=== PATIENT | male | born 1995 | race Caucasian/White ===

== ENCOUNTER 2017-04-17 16:46 | Inpatient (IN) | payer OTHER ==
[2017-04-17 17:32] LABS: Hematocrit 44 % (42-52); Hemoglobin 15.1 g/dl (14.0-18.0); Mean Corpuscular HGB Conc 34 g/dl (31-36); Mean Corpuscular Hemoglobin 31 pg (27-31); Mean Corpuscular Volume 91 fL (80-94); Mean Platelet Volume 8 um3 (7.4-10.4); Red Blood Count 4.89 10^6/ul (4.0-5.4); Red Cell Distribution Width 14 % (10.5-15); White Blood Count 11.4 10^3/ul (3.5-10.8)
[2017-04-17 17:34] LABS: Urine Bilirubin Negative (Negative); Urine Glucose Negative (Negative); Urine Nitrite Negative (Negative)
--- NOTE | 2017-04-17 17:39 | RAD ---
Indication: Headaches, fall. CT of the brain was performed without IV contrast. Ventricular structures are midline. No midline shift is noted. The extra-axial spaces are unremarkable. There is no evidence of intracranial mass or hemorrhage. There are no other high or low density lesions identified. Mastoid air cells and paranasal sinuses are otherwise unremarkable. IMPRESSION: THERE IS NO EVIDENCE OF INTRACRANIAL MASS OR HEMORRHAGE NOTED.
[2017-04-17 17:51] LABS: ALT 39 U/L (7-52); AST 24 U/L (13-39); Albumin 4.7 g/dL (3.2-5.2); Alkaline Phosphatase 78 U/L (34-104); Anion Gap 8 mmol/L (2-11); BUN/Creatinine Ratio 18.3 (8-20); Blood Urea Nitrogen 17 mg/dL (6-24); CO2 Carbon Dioxide 27 mmol/L (22-32); Calcium 9.1 mg/dL (8.6-10.3); Chloride 102 mmol/L (101-111); EGFR African American 129.5 (>60); EGFR Non-African American 100.7 (>60); Globulin 2.5 g/dL (2-4); Glucose 96 mg/dL (70-100); Potassium 4.1 mmol/L (3.5-5.0); Sodium 137 mmol/L (133-145); Total Protein 7.2 g/dL (6.4-8.9)
[2017-04-17 18:06] LABS: Benzodiazepine Urine Screen None Detected (None Detect)
[2017-04-17 18:15] LABS: TSH (Thyroid Stimulating Horm) 1.13 mcIU/mL (0.34-5.60)
[2017-04-17 18:50] LABS: Acetaminophen < 15 mcg/mL; Alcohol < 10 mg/dL (<10); Salicylate < 2.50 mg/dL (<30)
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
[2017-04-17] MEDS ORDERED: OLANzapine TAB* 10 MG ONE (22:36)
[2017-04-17] MEDS ORDERED: Acetaminophen TAB* 325 MG PO PRN (22:39)
[2017-04-17] MEDS ORDERED: Al Hydrox/Mg Hydrox/Simet LIQ* 30 ML UDC PO PRN (22:39)
[2017-04-17] MEDS ORDERED: OLANzapine TAB* 10 MG PO SCH (23:00)
[2017-04-18] MEDS: FLUoxetine CAP* 20 MG PO SCH (08:57)
[2017-04-18] MEDS: Vitamin THERAPEUTIC TAB PO SCH (08:57)
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
[2017-04-18] MEDS ORDERED: Divalproex ER TAB(*) 500 MG PO SCH (21:00)
[2017-04-18] MEDS: OLANzapine TAB* 10 MG PO SCH (21:03)
[2017-04-18] MEDS: Divalproex ER TAB(*) 250 MG PO SCH (21:03)
[2017-04-19] MEDS: Vitamin THERAPEUTIC TAB PO SCH (09:18)
[2017-04-19] MEDS: ARIPiprazole TAB* 5 MG PO SCH (09:18)
[2017-04-19] MEDS: FLUoxetine CAP* 20 MG PO SCH (09:18)
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
[2017-04-19] MEDS: Divalproex ER TAB(*) 250 MG PO SCH (20:25)
[2017-04-19] MEDS: OLANzapine TAB* 10 MG PO SCH (20:26)
--- NOTE | 2017-04-20 05:15 | EEG ---
ELECTROENCEPHALOGRAPHY: DATE OF STUDY: 04/19/17 REFERRING PROVIDER: Behavioral services unit. LOCATION: He is an inpatient in the behavioral service unit. CLINICAL PROBLEM: The patient with bipolar disorder, bizarre thoughts, agitation. MEDICATIONS: Include: 1. Aripiprazole. 2. . 3. Olanzapine. 4. Fluoxetine. REPORT: The 16-channel EEG is remarkable for background rhythms consisting of a well-formed alpha r hythm in the posterior derivations at 10 cycles per second, which is symmetrical and suppressed by e ye opening. Moderate voltage bifrontal beta rhythms are also noted and are symmetric. The patient is awake. Activation procedures are not performed. There is occasional blink and muscle artifact. The patient does not appear drowsy or asleep during the recording. There are no focal, lateralized , or epileptiform abnormalities. CLINICAL IMPRESSION: Normal awake EEG. [id number]/[facility] #: [id number]
[2017-04-20] MEDS: FLUoxetine CAP* 20 MG PO SCH (08:57)
[2017-04-20] MEDS: Vitamin THERAPEUTIC TAB PO SCH (08:57)
[2017-04-20] MEDS: ARIPiprazole TAB* 5 MG PO SCH (08:57)
[2017-04-20] MEDS: OLANzapine TAB* 10 MG PO SCH (20:51)
[2017-04-20] MEDS: Divalproex ER TAB(*) 250 MG PO SCH (20:52)
[2017-04-21] MEDS: FLUoxetine CAP* 20 MG PO SCH (09:03)
[2017-04-21] MEDS: Vitamin THERAPEUTIC TAB PO SCH (09:04)
[2017-04-21] MEDS: ARIPiprazole TAB* 5 MG PO SCH (09:04)
--- NOTE | 2017-04-21 18:31 | PN ---
Subjective - Subjective Subjective: Jay reports improvement in sleep (with new CPAP machine), mood, level of energy and absence of side effects from prescribed mediations. He avidly denies SI/HI or A/VH. He continues to find the inpatient unit a useful place to get his medications adjusted. Per staff, he has been adherent to [place]'s routines. Objective - Appearance Appearance: Healthy Appearing Dysmorphic Features: No Hygiene: Normal Grooming: Well Kept - Behavior Psychomotor Activities: Normal Exhibits Abnormal Movement: No - Attitude and Relatedness Attitude and Relatedness: Cooperative Eye Contact: Fair - Speech Quality: Unpressured Latencies: Normal Quantity: Appropriate - Mood Patient's Decription of Mood: "Okay" - Affect Observed Affect: Non-labile Affect Consistent with: Euthymia - Thought Process Patient's Thought Process: Coherent, Goal Directed Thought Content: No Passive Wish, No Suicidal Planning, No Homicidal Ideation, No Paranoid Ideation - Sensorium Experiencing Hallucinations: No, Sensorium is Clear - Level of Consciousness Level of Consciousness: Alert Orientation: Yes Intact - Impulse Control Impulse Control: Intact - Insight and Judgement Insight and Judgement: Fair - Group Participation Particating in Group Activities: Yes - Medication Management Medication Management Adherence: Yes Assessment - Assessment Merits Inpatient Hospitalization: Consolidate Improvements, For Discharge Planning Inpatient DSM-IV Dx: 1. Schizoaffective d/o, Bipolar type MRE mixed. 2. TBI. 3. 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 Plan - Plan Treatment Plan: Name: JAY CRABTREE Birthdate: 1995 [id number] Medications: Current Medications Acetaminophen (Tylenol Tab*) 650 mg PO Q4H PRN PRN Reason: PAIN or TEMP > 101 F Al Hydrox/Mg Hydrox/Simethicone (Maalox Plus*) 30 ml PO Q4H PRN PRN Reason: INDIGESTION Aripiprazole (Abilify Tab*) 10 mg PO DAILY [facility] Last Admin: 04/21/17 09:04 Dose: 10 mg Divalproex Sodium (Depakote Er Tab(*)) 750 mg PO BEDTIME [facility] Last Admin: 04/20/17 20:52 Dose: 750 mg Fluoxetine HCl (Prozac Cap*) 40 mg PO QAM [facility] Last Admin: 04/21/17 09:03 Dose: 40 mg Multivitamins (Theragran Tab*) 1 tab PO DAILY [facility] Last Admin: 04/21/17 09:04 Dose: 1 tab Olanzapine (Zyprexa Tab*) 15 mg PO BEDTIME [facility] Last Admin: 04/20/17 20:51 Dose: 15 mg - Discharge Plan Discharge Plan: Outpatient Follow Up Outpatient Program: [facility]
[2017-04-21] MEDS: OLANzapine TAB* 10 MG PO SCH (20:23)
[2017-04-21] MEDS: Divalproex ER TAB(*) 250 MG PO SCH (20:25)
[2017-04-22] MEDS: FLUoxetine CAP* 20 MG PO SCH (09:25)
[2017-04-22] MEDS: ARIPiprazole TAB* 5 MG PO SCH (09:26)
[2017-04-22] MEDS: Vitamin THERAPEUTIC TAB PO SCH (09:27)
--- NOTE | 2017-04-22 15:35 | PN ---
Subjective - Subjective Service Type: 47403 Hosp care 15 min low complexity Subjective: Jay says he has been doing a lot better since his admission and adjustment of his meds. Feels bad about his behavior in the community and for stabbing self on his thigh. Objective - Appearance Appearance: Healthy Appearing Dysmorphic Features: Yes Hygiene: Normal Grooming: Fairly Well Kept - Behavior Psychomotor Activities: Normal Exhibits Abnormal Movement: No - Attitude and Relatedness Attitude and Relatedness: Appropriate Eye Contact: Good - Speech Quality: Unpressured Latencies: Normal Quantity: Terse - Mood Patient's Decription of Mood: "Okay" - Affect Observed Affect: Non-labile Affect Consistent with: Euthymia - Thought Process Patient's Thought Process: Coherent, Impoverished Thought Content: No Passive Wish, No Suicidal Planning, No Homicidal Ideation, No Paranoid Ideation - Sensorium Experiencing Hallucinations: No, Sensorium is Clear Type of Hallucinations: Visual: No, Auditory: Yes, Command: No - Level of Consciousness Level of Consciousness: Alert Orientation: Yes Intact, Yes Orientated to Time, Yes Orientated to Place, Yes Orientated to Person - Impulse Control Impulse Control: Intact - Insight and Judgement Insight and Judgement: Fair - Group Participation Particating in Group Activities: Yes - Medication Management Medication Management Adherence: Yes Assessment - Assessment Merits Inpatient Hospitalization: Consolidate Improvements, Pending Safe DC Plan Inpatient DSM-IV Dx: 1. Schizoaffective d/o, Bipolar type MRE mixed. 2. TBI. 3. 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 Plan - Plan Treatment Plan: Name: JAY CRABTREE Birthdate: 1995 [id number] Continued Medication Management: Continue Outpt Medication Medications: Current Medications Acetaminophen (Tylenol Tab*) 650 mg PO Q4H PRN PRN Reason: PAIN or TEMP > 101 F Al Hydrox/Mg Hydrox/Simethicone (Maalox Plus*) 30 ml PO Q4H PRN PRN Reason: INDIGESTION Aripiprazole (Abilify Tab*) 10 mg PO DAILY [facility] Last Admin: 04/22/17 09:26 Dose: 10 mg Divalproex Sodium (Depakote Er Tab(*)) 750 mg PO BEDTIME [facility] Last Admin: 04/21/17 20:25 Dose: 750 mg Fluoxetine HCl (Prozac Cap*) 40 mg PO QAM [facility] Last Admin: 04/22/17 09:25 Dose: 40 mg Multivitamins (Theragran Tab*) 1 tab PO DAILY [facility] Last Admin: 04/22/17 09:27 Dose: 1 tab Olanzapine (Zyprexa Tab*) 15 mg PO BEDTIME [facility] Last Admin: 04/21/17 20:23 Dose: 15 mg - Discharge Plan Discharge Plan: Outpatient Follow Up Outpatient Program: [facility]
[2017-04-22] MEDS: Divalproex ER TAB(*) 250 MG PO SCH (20:43)
[2017-04-22] MEDS: OLANzapine TAB* 10 MG PO SCH (20:43)
[2017-04-23] MEDS: FLUoxetine CAP* 20 MG PO SCH (10:00)
[2017-04-23] MEDS: Vitamin THERAPEUTIC TAB PO SCH (10:00)
[2017-04-23] MEDS: ARIPiprazole TAB* 5 MG PO SCH (10:00)
--- NOTE | 2017-04-23 11:48 | PN ---
MHU: Group Therapy Note - Service Type Service Type: [id number] Group Psychotherapy - Cognitive Behavioral Group Therapy ( CBT):Patient attended CBT programming this morning and presented with flat affect that did not vary with discussion. Although responsive to direct prompts to respond to questions, patient did not engage in spontaneous conversation.
--- NOTE | 2017-04-23 15:53 | PN ---
Subjective - Subjective Service Type: [id number] Hosp care 15 min low complexity Subjective: Patient noted to still isolate in his room since admission. Patient is up for meals and patient attended some groups today. Patient reports his mood as "good". He reports feeling less anxiety and tension since admission. Patient reports he has not experienced an episode of agitation nor has he had an anger outburst since admission day 1. Patient reports improved sleep and appetite. Patient reports med compliance and denies med s/e's. Patient reports no DOMINGUEZ, CP, Abd pain. He denies issues with urination or bowel movements. Patient is amenable to further taper of Olanzapine and with further uptitration of Abilify tonight. Patient denies SI/HI and AH/VH. Objective - Appearance Appearance: Well Developed/Nourished, Healthy Appearing, Thin Framed Dysmorphic Features: Yes Hygiene: Normal Grooming: Fairly Well Kept - Behavior Psychomotor Activities: Normal Exhibits Abnormal Movement: No - Attitude and Relatedness Attitude and Relatedness: Cooperative Eye Contact: Fair - Speech Quality: Unpressured Latencies: Normal Quantity: Appropriate - Mood Patient's Decription of Mood: "Good" - Affect Observed Affect: Fair Affect Consistent with: Euthymia - Thought Process Patient's Thought Process: Coherent Thought Content: No Passive Wish, No Suicidal Planning, No Homicidal Ideation, No Paranoid Ideation - Sensorium Experiencing Hallucinations: No, Sensorium is Clear Type of Hallucinations: Visual: No, Auditory: No, Command: No - Level of Consciousness Level of Consciousness: Alert Orientation: Yes Intact, Yes Orientated to Time, Yes Orientated to Place, Yes Orientated to Person - Impulse Control Impulse Control: Intact - Insight and Judgement Insight and Judgement: Fair - Group Participation Particating in Group Activities: Yes - Medication Management Medication Management Adherence: Yes Assessment - Assessment Merits Inpatient Hospitalization: For Immediate Safety, For Stabilization Inpatient DSM-IV Dx: 1. Schizoaffective d/o, Bipolar type MRE mixed. 2. TBI. 3. 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 Continue admission to [facility] for safety and symptom mx. 2. CT head - WNL 3. Continue taper of Olanzapine now at 15mg po qhs taper to 7.5mg po qhs today with plan to discontinue at discharge, tentatively this . 4. Continue Abilify up-titration from 10mg to 20mg today for mood stabilization / psychosis. 5. Continue Prozac 40mg po daily for mood / anxiety. 6. Continue Depakote 750mg po qhs for mood stabilization and r/o TLE. 7. EEG - wnl 8. [facility]. 9. CPAP ordered for patient's dx of KORI. 10. Patient to participate in milieu activities and groups. Continued Medication Management: Different Medication Medications: Current Medications Acetaminophen (Tylenol Tab*) 650 mg PO Q4H PRN PRN Reason: PAIN or TEMP > 101 F Al Hydrox/Mg Hydrox/Simethicone (Maalox Plus*) 30 ml PO Q4H PRN PRN Reason: INDIGESTION Aripiprazole (Abilify Tab*) 10 mg PO DAILY [facility] Last Admin: 04/23/17 10:00 Dose: 10 mg Divalproex Sodium (Depakote Er Tab(*)) 750 mg PO BEDTIME [facility] Last Admin: 04/22/17 20:43 Dose: 750 mg Fluoxetine HCl (Prozac Cap*) 40 mg PO QAM [facility] Last Admin: 04/23/17 10:00 Dose: 40 mg Multivitamins (Theragran Tab*) 1 tab PO DAILY [facility] Last Admin: 04/23/17 10:00 Dose: 1 tab Olanzapine (Zyprexa Tab*) 15 mg PO BEDTIME [facility] Last Admin: 04/22/17 20:43 Dose: 15 mg - Discharge Plan Discharge Plan: Outpatient Follow Up
[2017-04-23] MEDS: OLANzapine TAB* 2.5 MG PO SCH (20:15)
[2017-04-23] MEDS: Divalproex ER TAB(*) 250 MG PO SCH (20:16)
[2017-04-24] MEDS: Vitamin THERAPEUTIC TAB PO SCH (09:14)
[2017-04-24] MEDS: FLUoxetine CAP* 20 MG PO SCH (09:14)
[2017-04-24] MEDS: ARIPiprazole TAB* 20 MG PO SCH (09:14)
--- NOTE | 2017-04-24 13:31 | PN ---
Subjective - Subjective Service Type: 21692 Hosp care 15 min low complexity Subjective: Patient noted to be more engaged in conversation with more spontaneous speech. TP noted to be linear and TC noted to be appropriate. Patient's affect continues to be full, no longer flat or odd. Patient noted to be participating in groups. He still isolates in his room most of the day. Patient denies depression, anxiety, and reports no further episodes of agitation or aggression since admission day 1. Patient denies SI/HI and AH/VH. Objective - Appearance Appearance: Well Developed/Nourished, Healthy Appearing Dysmorphic Features: Yes Hygiene: Normal Grooming: Fairly Well Kept - Behavior Psychomotor Activities: Normal Exhibits Abnormal Movement: No - Attitude and Relatedness Attitude and Relatedness: Cooperative Eye Contact: Fair - Speech Quality: Unpressured Latencies: Normal Quantity: Appropriate - Mood Patient's Decription of Mood: "Okay" - Affect Observed Affect: Fair Affect Consistent with: Euthymia - Thought Process Patient's Thought Process: Coherent Thought Content: No Passive Wish, No Suicidal Planning, No Homicidal Ideation, No Paranoid Ideation - Sensorium Experiencing Hallucinations: No, Sensorium is Clear Type of Hallucinations: Visual: No, Auditory: No, Command: No - Level of Consciousness Level of Consciousness: Alert Orientation: Yes Intact, Yes Orientated to Time, Yes Orientated to Place, Yes Orientated to Person - Impulse Control Impulse Control: Intact - Insight and Judgement Insight and Judgement: Fair - Group Participation Particating in Group Activities: Yes - Medication Management Medication Management Adherence: Yes Assessment - Assessment Merits Inpatient Hospitalization: For Immediate Safety, For Stabilization Inpatient DSM-IV Dx: 1. Schizoaffective d/o, Bipolar type MRE mixed. 2. TBI. 3. 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 Continue admission to [facility] for safety and symptom mx. 2. CT head - WNL 3. Continue taper of Olanzapine now 7.5mg po qhs today with plan to discontinue at discharge tomorrow afternoon. 4. Continue Abilify 20mg today for mood stabilization/ psychosis. 5. Continue Prozac 40mg po daily for mood / anxiety. 6. Continue Depakote 750mg po qhs for mood stabilization and r/o TLE. 7. EEG - wnl 8. Referral for outpt Neurology follow-up made, spoke with Dr. Borjas - Neurology regarding the case. 9. Collateral obtained from mom and the [facility] program. 10. CPAP ordered for patient's dx of KORI. 11. Patient to participate in milieu activities and groups. Continued Medication Management: Different Medication Medications: Current Medications Acetaminophen (Tylenol Tab*) 650 mg PO Q4H PRN PRN Reason: PAIN or TEMP > 101 F Al Hydrox/Mg Hydrox/Simethicone (Maalox Plus*) 30 ml PO Q4H PRN PRN Reason: INDIGESTION Aripiprazole (Abilify Tab*) 20 mg PO DAILY [facility] Last Admin: 04/24/17 09:14 Dose: 20 mg Divalproex Sodium (Depakote Er Tab(*)) 750 mg PO BEDTIME [facility] Last Admin: 04/23/17 20:16 Dose: 750 mg Fluoxetine HCl (Prozac Cap*) 40 mg PO QAM [facility] Last Admin: 04/24/17 09:14 Dose: 40 mg Multivitamins (Theragran Tab*) 1 tab PO DAILY [facility] Last Admin: 04/24/17 09:14 Dose: 1 tab Olanzapine (Zyprexa Tab*) 7.5 mg PO 2100 [facility] Last Admin: 04/23/17 20:15 Dose: 7.5 mg - Discharge Plan Discharge Plan: Outpatient Follow Up Outpatient Program: Private Clinician(s) - Neurolgy - Dr. Williams Borjas
--- NOTE | 2017-04-24 14:00 | PN ---
MHU: Group Therapy Note - Service Type Service Type: [id number] Group Psychotherapy - Cognitive Behavioral Group Therapy ( CBT):Patient was attentive and participatory in CBT programming this morning, and remained in good behavioral control. Patient expressed positive insights regarding relevant treatment interventions and goals.
[2017-04-24] MEDS: OLANzapine TAB* 2.5 MG PO SCH (20:31)
[2017-04-24] MEDS: Divalproex ER TAB(*) 250 MG PO SCH (20:31)
[2017-04-25 09:04] VITALS: BP 101/52
[2017-04-25] MEDS: FLUoxetine CAP* 20 MG PO SCH (10:00)
[2017-04-25] MEDS: Vitamin THERAPEUTIC TAB PO SCH (10:00)
[2017-04-25] MEDS: ARIPiprazole TAB* 20 MG PO SCH (10:00)
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
[2017-04-25 15:42] LABS: Albumin 4.2 g/dL (3.2-5.2); BUN/Creatinine Ratio 17.6 (8-20); EGFR African American 132.8 (>60); EGFR Non-African American 103.2 (>60); Globulin 2.3 g/dL (2-4); HDL Cholesterol 39.6 mg/dL; Potassium 4.3 mmol/L (3.5-5.0); Total Bilirubin 0.4 mg/dL (0.2-1.0); Total Protein 6.5 g/dL (6.4-8.9)
== END 2017-04-25 16:39 | disposition home or self-care (01) | DRG 885 ==
LOC: ED 16:46 → BSU 21:07
PROVIDERS: ADMIT Psychiatry & Neurology Psychiatry; ATTEND Psychiatry & Neurology Psychiatry
PROC: 5A09357 Assistance with Respiratory Ventilation, Less than 24 Consecutive Hours, Continuous Positive Airway Pressure (ICD-10-PCS; 2017-04-18)
PROC: 4A00X4Z Measurement of Central Nervous Electrical Activity, External Approach (ICD-10-PCS; 2017-04-19)
PROC: GZHZZZZ Group Psychotherapy (ICD-10-PCS; principal; 2017-04-24)
DX: F25.0 Schizoaffective disorder, bipolar type (principal); G40.802 Other epilepsy, not intractable, without status epilepticus; F31.9 Bipolar disorder, unspecified; F41.9 Anxiety disorder, unspecified; G47.33 Obstructive sleep apnea (adult) (pediatric); Z87.820 Personal history of traumatic brain injury; Z72.89 Other problems related to lifestyle; Z82.0 Family history of epilepsy and other diseases of the nervous system; Z56.0 Unemployment, unspecified
CPT/HCPCS: 36415; 70450; 80053; 80061; 80164; 80307; 80320; 80329; 81003; 83036; 84443; 85025; 94660; 95816; 99222; A9270-GY; G0480

== ENCOUNTER 2018-05-19 18:16 | Emergency (ER) | payer OTHER ==
[2018-05-19 19:38] VITALS: BP 140/92
--- NOTE | 2018-05-19 20:34 | UC ---
Ear Complaint HPI - HPI Summary HPI Summary: 22 year old white male coming in with a complaint of left ear and left angle of the jaw pain. This started a day ago. His ear hurts and it hurts to open and close his mouth. He feels a swelling behind the angle of the jaw. No runny nose no sore throat. Patient does not have wisdom teeth. Denies concern of dental infection. He is on doxycycline for Lyme disease treatment. He is not a swimmer. - History of Current Complaint Chief Complaint: UCEar Stated Complaint: L EAR, JAW PAIN Time Seen by Provider: 05/19/18 20:18 Pain Intensity: 8 - Allergies/Home Medications Allergies/Adverse Reactions: Allergies Allergy/AdvReac Type Severity Reaction Status Date / Time bupropion [From Wellbutrin] Allergy Itching Verified 05/19/18 19:39 Home Medications: Home Medications DOXYcycline CAP(*) [DOXYcycline 100MG CAP(*)] 100 mg PO BID 05/19/18 [History Confirmed 05/19/18] cloZAPine [Clozapine] 350 mg PO 05/19/18 [History] PMH/Surg Hx/FS Hx/Imm Hx - Additional Past Medical History Additional PMH: LYME DISEASE - Surgical History Surgical History: None - Family History Known Family History: Positive: Other - epilepsy - Social History Alcohol Use: None Substance Use Type: None Smoking Status (MU): Never Smoked Tobacco Amount Used/How Often: Pt has not smoked in last 30 days or used any tobacoo products. - Immunization History Most Recent Influenza Vaccination: fall 2012 Most Recent Tetanus Shot: unk Most Recent Pneumonia Vaccination: unk Review of Systems Constitutional: Negative Skin: Rash - There is some redness in the area of pain Eyes: Negative ENT: Other - C history of present illness Respiratory: Negative Cardiovascular: Negative Gastrointestinal: Negative Motor: Negative Neurovascular: Negative Musculoskeletal: Negative Neurological: Negative Psychological: Negative Is Patient Immunocompromised?: No All Other Systems Reviewed And Are Negative: Yes Physical Exam Triage Information Reviewed: Yes Appearance: Well-Appearing, Well-Nourished, Pain Distress - MILD Vital Signs: Initial Vital Signs Temp 99.2 F 05/19/18 19:34 Pulse 117 05/19/18 19:34 Resp 18 05/19/18 19:34 BP 140/92 05/19/18 19:34 Pulse Ox 99 05/19/18 19:34 Vital Signs Reviewed: Yes Eye Exam: Normal Eyes: Positive: Conjunctiva Clear ENT: Positive: Other - The left ear canal is swollen and tender upon examination. Is also tender around the pinna. Pain with attempting to open his mouth all the way. There is no obvious gingival swelling.. Negative: Nasal congestion Dental Exam: Normal Neck: Positive: Supple, Enlarged Nodes @ - Below left ear, Other: - The parotid gland is nontender Respiratory Exam: Normal Respiratory: Positive: Lungs clear, Normal breath sounds, No respiratory distress Cardiovascular: Positive: RRR Musculoskeletal Exam: Normal Musculoskeletal: Positive: Strength Intact, ROM Intact Neurological Exam: Normal Neurological: Positive: Alert, Muscle Tone Normal Psychological Exam: Normal Psychological: Positive: Normal Response To Family, Age Appropriate Behavior Skin Exam: Other - There is erythema in the left ear canal and the area surrounding the PINNA Ear Complaint Course/Dx - Course Course Of Treatment: Patient is on doxycycline at this time. We'll start him on Ciprodex drops. Also added Keflex. His primary care doctor get a reevaluation sooner if worse. - Differential Dx/Diagnosis Provider Diagnoses: left otitis externa Discharge - Sign-Out/Discharge Documenting (check all that apply): Patient Departure All imaging exams completed and their final reports reviewed: No Studies - Discharge Plan Condition: Stable Disposition: HOME Prescriptions: Cephalexin CAP* [Keflex CAP*] 500 mg PO TID #30 cap Ciproflox/Dexameth OTIC.SUSP* [Ciprodex OTIC.SUSP*] 4 drop OTIC BID #1 btl HYDROcodone/ACETAMIN 5-325 MG* [[place] 5-325 TAB*] 1 tab PO Q4H PRN #10 tab MDD 6 PRN Reason: Pain Patient Education Materials: Otitis Externa (ED) Referrals: Shantanu Staples MD [Primary Care Provider] - Additional Instructions: FOLLOW UP WITH YOUR DOCTOR. GET RECHECKED FOR ANY WORSENING OF YOUR CONDITION OR QUESTIONS OR CONCERNS. - Billing Disposition and Condition Condition: STABLE Disposition: Home
[2018-05-19] MEDS ORDERED: Ibuprofen TAB* 600 MG PO ONE (20:45)
[2018-05-19] MEDS ORDERED: Neomyc/Polym/HC 1% OTIC SUSP* **OTIC LEFT EAR ONE (20:45)
[2018-05-19] MEDS ORDERED: Cephalexin CAP* 500 MG PO ONE (20:46)
== END 2018-05-19 21:00 | disposition home or self-care (01) ==
LOC: UCEAST 18:16
DX: H60.92 Unspecified otitis externa, left ear (principal); Z88.8 Allergy status to other drugs, medicaments and biological substances
CPT/HCPCS: 99213; A9270-GY; G0463

== ENCOUNTER 2019-01-31 14:23 | Emergency (ER) | payer OTHER ==
--- OUTSIDE RECORDS SUMMARY | 2019-01-31 14:29 | XMS REPORT | Continuity of Care Document ---
:1995 External Reference #:[id number] Author Name Maynor Escobar Address [address] [facility] [place] [address] Care Team Providers Name Role Phone Shantanu Staples Care Team Information [employer] Unavailable Shantanu Staples Primary Care Physician Unavailable Payers Date Identification Numbers Payment Provider Subscriber Policy Number: [id number] [employer] Anushao Ortega Yaneli Ballesteros Group Number: [id number] [id number] PayID: [id number] [place] [address] Problems Active Problems Provider Date Liver function tests abnormal Shantanu Staples M.D. Onset: 08/15/2018 Schizophrenia Shantanu Staples M.D. Onset: 06/07/2018 Chronic otitis externa Shantanu Staples M.D. Onset: 06/07/2018 Lyme disease Shantanu Staples M.D. Onset: 05/09/2018 Arthralgia of the lower leg Shantanu Staples M.D. 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 Onset: 12/07/2013 Essential tremor Shantanu Staples M.D. Onset: 06/05/2013 Insomnia Shantanu Staples M.D. Onset: 05/08/2013 Anxiety state Shantanu Staples M.D. Onset: 05/08/2013 Depressive disorder Shantanu Staples M.D. Onset: 05/08/2013 Need For Prophylactic Vaccination & Shantanu Staples M.D. Onset: 06/21/2011 Inoculation Other Virus Disorder of shoulder Shantanu Staples M.D. Onset: 06/21/2011 Family History Date Family Member(s) Observation Comments Mother 49 Social History Type Date Description Comments Sex Unknown Occupation Student ETOH Use Denies alcohol use Tobacco Use Start: Unknown Patient has never smoked Recreational Drug Use Denies Drug Use Allergies, Adverse Reactions, Alerts Active Allergies Reaction Severity Comments Date Wellbutrin 05/08/2013 Inactive Allergies NKDA 06/21/2011 Medications Active Medications SIG Qnty Indications Ordering Date Provider Discontinue PICC Line Shantanu Staples, 01/20/2019 MLaila Ceftriaxone Sodium discontinue 30units Shantanu Staples, 01/20/2019 2gm medication M.DBandar Solution Rec Cpap Supplies as needed. G47.33 Shantanu Staples, 01/15/2019 dx-sleep apnea Em.DBandar Place PICC Line And Administer first Shantanu Staples, 09/16/2018 Flush W/ Heparin Per dose of M.D. Protocol. Ceftriaxone 2 gm IV infusion PICC Line Flush with normal Shantanu Staples, 09/16/2018 saline before and M.D. after ceftriaxone infusion and prn. Heparin flush per protocol Minocycline HCL Take One Capsule 60caps A69.29 Shantanu Staples, 08/15/2018 100mg By Mouth Twice A M.D. Capsules Day Multivitamins 1 po qd Unknown Capsules Folic Acid 1 by mouth every Unknown 400mcg day Tablets Vitamin D by mouth daily Unknown (Cholecalciferol) 1000Unit Tablets Risperdal 1 po bid Unknown 2mg Tablets Metformin HCL 1 by mouth bid Unknown 500mg Tablets History Medications Risperdal 1 PO bid 14tabs Shantanu Messer 12/18/2018 - 1mg Tablets Sloan Staples 01/20/2019 Note For School Or Unable to attend Shantanu Messer 10/07/2018 - Work Absence school 10/02 due to Sloan Staples 11/21/2018 medical appt. Ceftriaxone Sodium infuse 2 gm daily 30units A69.29 Shantanu Messer 09/16/2018 - 2gm through picc line Sloan Staples 01/20/2019 Solution Rec Ciprodex 3-4 gtts Right Ear 7.500ml H60.8x1 Shantanu Messer 06/07/2018 - 0.3-0.1% bid Sloan Staples 07/14/2018 Suspension Doxycycline Hyclate 1 by mouth twice a 60caps Shantanu Messer 04/25/2018 - day Sloan Staples 09/16/2018 100mg Capsules Metformin HCL ER 1 bid Shantanu Messer 12/23/2017 - (Mod) Sloan Staples 06/07/2018 500mg Tablets ER 24HR Amphetamine-Dextroamp 1-2 po qd 30tabs 314.00 Shantanu Messer 03/08/2015 - hetamine Sloan Staples 04/11/2017 10mg Tablets Amphetamine-Dextroamp 1 by mouth every in 30caps Shantanu Messer 07/26/2014 - het ER the morning as Sloan Staples 04/11/2017 20mg Caps ER needed 24HR Amphetamine/Dextroamp 1-2 po qd 30tabs 314.00 Shantanu Messer 07/26/2014 - hetann Staples M.D. 03/08/2015 10mg Tablets Effexor XR 1 every day or as 30caps Shantanu Messer 07/26/2014 - 37.5mg Caps directed Sloan Staples 09/17/2014 ER 24HR Effexor XR 1 by mouth every 30caps Shantanu Messer 06/25/2014 - 75mg Caps ER morning Sloan Staples 07/26/2014 24HR Cialis 1 by mouth every Samples 311 Shantanu Messer 06/25/2014 - 5mg Tablets day as directed Sloan Staples 04/11/2017 Aluminum Chloride apply qd to 1Bottle Shantanu Messer 06/15/2014 - 20% affected areas prn Sloan Staples 04/11/2017 Solution Amphetamine-Dextroamp 1 po q am prn 30tabs 314.00 Shantanu Messer 06/15/2014 - hetann Staples M.D. 07/26/2014 30mg Tablets Amphetamine/Dextroamp 1 po q am prn 30caps 314.00 [facility] Caps ER Afnp-C 24HR Amphetamine/Dextroamp 1-2 po qd 60tabs 314.00 Shantanu Messer 01/26/2014 - hetamine Sloan Staples 03/29/2014 10mg Tablets Methylphenidate HCL 1 po bid prn for 60tabs 314.00 Shantanu Messer 01/01/2014 - concentration Mayra StaplesDBandar 06/15/2014 10mg Tablets Trazodone HCL 1-3 qhs prn for 90tabs Shantanu Messer 05/08/2013 - 100mg sleep Sloan Staples 06/15/2014 Tablets Temazepam 1 hs prn for sleep 30caps Shantanu Messer 05/08/2013 - 30mg Capsules Sloan Staples 09/08/2013 Retin-A apply at bedtime as 45units Shantanu Messer 05/08/2013 - 0.05% Cream directed Sloan Staples 04/11/2017 Gym Note needs to avoid Shantanu Messer 06/21/2011 - strain on right Sloan Staples 05/08/2013 shoulder due to injury for 3 weeks Typhoid Oral Vaccine 1 dose po qod x 4 4Doses Shantanu Messer 06/21/2011 - Sloan Staples 05/08/2013 Metformin HCL 1 by mouth bid Unknown - 500mg 09/16/2018 Tablets Docusate Sodium 1 by mouth twice a Unknown - 100mg day 10/21/2018 Capsules Prozac 1 by mouth every Unknown - 20mg Capsules day 05/30/2018 Clozapine 1 1/2 po qd Unknown - 100mg Tablets 09/16/2018 Prozac 1 by mouth every Unknown - 10mg Capsules day 04/15/2018 Depakote use 1po every night Unknown - 750mg Tablets at bedtime 04/15/2018 DR Elliott 1 po qd Unknown - 20mg Tablets 04/15/2018 Zyprexa 3 by mouth every Unknown - 10mg Tablets day 04/26/2017 Prozac 1 or 2 by mouth Unknown - 20mg Capsules every day (pt 12/23/2017 unsure if he takes 20mg or 40mg) Effexor XR Take One Capsule By 30caps Shantanu Messer - 150mg Caps Mouth Every Day Sloan Staples 06/25/2014 ER 24HR Abilify Take 1 Tablet By 30tabs Shantanu Messer - 5mg Tablets Mouth Every Day AT Sloan Staples 12/07/2013 Bedtime Melatonin one tab po qhs Unknown - 5mg Capsules 12/07/2013 Lexapro 1 po qd 60tabs Shantanu Messer - 20mg Tablets Sloan Staples 12/07/2013 Medications Administered in Office Medication SIG Qnty Indications Ordering Provider Date TB Intradermal Test Shantanu Staples M.D. 01/23/2019 Injection Immunizations CPT Code Status Date Vaccine Lot # [id number] Given 08/15/2018 Influenza Vac, Quadrivalent, Slit Virus, Im [id number] 82010 Given 04/11/2017 Meningococcal Recombinant Lipoprotein Vaccine [id number] Serogroup B 53231 Given 06/15/2014 DO Not Use Split Influenza Virus Vaccine [id number] 81802 Given 01/01/2014 Tdap Tetanus, W Pertussis [id number] 26605 Given 04/03/2012 Meningococcal Conjugate Vaccine,Serogroups For [id number] Intramuscular Use 72605 Given 06/22/2011 Hep A Ped 2-Dose Immunization [id number] 83792 Given 05/02/1999 MMR Virus Immunization 47117 Given 11/12/1997 Oral Poliovirus Immunization 36233 Given 11/12/1997 DTaP Immunization 37020 Given 03/15/1995 DTaP Immunization 48570 Given 01/02/1995 MMR Virus Immunization 73884 Given 01/02/1995 Hib PRP-T Conjugate 4 Dose Schedule 49943 Given 07/19/1994 Hepatitis B Immunization, -19 Years 61795 Given 03/22/1994 Oral Poliovirus Immunization 14594 Given 03/22/1994 DTP Immunization 21868 Given 03/22/1994 Hib PRP-T Conjugate 4 Dose Schedule 45422 Given 01/18/1994 Hepatitis B Immunization, -19 Years 51275 Given 01/18/1994 Oral Poliovirus Immunization 73709 Given 01/18/1994 DTP Immunization 46844 Given 01/18/1994 Hib PRP-T Conjugate 4 Dose Schedule 58552 Given 1993 Oral Poliovirus Immunization 46918 Given 1993 DTP Immunization 73360 Given 1993 Hib PRP-T Conjugate 4 Dose Schedule 70016 Given 1993 Hepatitis B Immunization, Combs-19 Years Vital Signs Date Vital Result Comment 01/30/2019 2:03pm BP Systolic 110 mmHg BP Diastolic 70 mmHg Heart Rate 80 /min Body Temperature 98.1 F Respiratory Rate 18 /min Weight 218.00 lb 01/23/2019 1:26pm BP Systolic 116 mmHg BP Diastolic 64 mmHg Heart Rate 98 /min Body Temperature 98.2 F Respiratory Rate 16 /min Height 70 inches 5'10" Weight 218.00 lb BMI (Body Mass Index) 31.3 kg/m2 01/20/2019 4:14pm BP Systolic 114 mmHg BP Diastolic 60 mmHg Heart Rate 102 /min Body Temperature 99.0 F Respiratory Rate 16 /min Height 70 inches 5'10" Weight 217.12 lb BMI (Body Mass Index) 31.2 kg/m2 12/23/2018 4:11pm BP Systolic 134 mmHg BP Diastolic 70 mmHg Heart Rate 120 /min Body Temperature 98.8 F Respiratory Rate 16 /min Height 70 inches 5'10" Weight 235.00 lb BMI (Body Mass Index) 33.7 kg/m2 11/21/2018 2:23pm BP Systolic 110 mmHg BP Diastolic 90 mmHg Heart Rate 84 /min Body Temperature 97.8 F Respiratory Rate 17 /min Weight 230.00 lb 10/21/2018 4:55pm BP Systolic 120 mmHg BP Diastolic 78 mmHg Heart Rate 90 /min Body Temperature 97.7 F Respiratory Rate 20 /min Weight 231.00 lb 09/16/2018 9:15am BP Systolic 122 mmHg BP Diastolic 82 mmHg Heart Rate 88 /min Body Temperature 97.5 F Weight 228.00 lb 08/15/2018 9:12am BP Systolic 112 mmHg BP Diastolic 74 mmHg Heart Rate 72 /min Body Temperature 98.4 F Respiratory Rate 20 /min Weight 241.00 lb 07/14/2018 4:25pm BP Systolic 110 mmHg BP Diastolic 70 mmHg Heart Rate 96 /min Body Temperature 98.5 F Respiratory Rate 16 /min Height 70 inches 5'10" Weight 235.00 lb BMI (Body Mass Index) 33.7 kg/m2 06/07/2018 11:04am BP Systolic 120 mmHg BP Diastolic 80 mmHg Heart Rate 66 /min Body Temperature 98.1 F Respiratory Rate 16 /min Height 70 inches 5'10" Weight 228.00 lb BMI (Body Mass Index) 32.7 kg/m2 05/09/2018 4:49pm BP Systolic 110 mmHg BP Diastolic 60 mmHg Heart Rate 60 /min Body Temperature 97.5 F Respiratory Rate 16 /min Height 70 inches 5'10" Weight 225.38 lb BMI (Body Mass Index) 32.3 kg/m2 04/15/2018 11:23am BP Systolic 100 mmHg BP Diastolic 60 mmHg Heart Rate 68 /min Body Temperature 97.7 F Respiratory Rate 16 /min Height 70 inches 5'10" Weight 225.00 lb BMI (Body Mass Index) 32.3 kg/m2 12/23/2017 10:40am BP Systolic 108 mmHg BP Diastolic 68 mmHg Heart Rate 88 /min Body Temperature 99.0 F Respiratory Rate 16 /min Height 70 inches 5'10" Weight 208.50 lb BMI (Body Mass Index) 29.9 kg/m2 04/26/2017 11:12am BP Systolic 102 mmHg BP Diastolic 62 mmHg Heart Rate 88 /min Body Temperature 98.5 F Height 70 inches 5'10" Weight 171.00 lb BMI (Body Mass Index) 24.5 kg/m2 04/11/2017 6:38pm BP Systolic 110 mmHg BP Diastolic 62 mmHg Heart Rate 80 /min Body Temperature 98.7 F Respiratory Rate 16 /min Height 70 inches 5'10" Weight 169.00 lb BMI (Body Mass Index) 24.2 kg/m2 09/17/2014 4:44pm BP Systolic 126 mmHg BP Diastolic 64 mmHg Heart Rate 84 /min Body Temperature 97.3 F Respiratory Rate 16 /min Height 70 inches 5'10" Weight 195.38 lb BMI (Body Mass Index) 28.0 kg/m2 07/26/2014 10:58am BP Systolic 110 mmHg BP Diastolic 72 mmHg Heart Rate 96 /min Body Temperature 99.2 F Respiratory Rate 16 /min Height 70 inches 5'10" Weight 200.38 lb BMI (Body Mass Index) 28.7 kg/m2 06/25/2014 1:07pm BP Systolic 112 mmHg BP Diastolic 60 mmHg Heart Rate 102 /min Body Temperature 97.7 F Respiratory Rate 16 /min Height 70 inches 5'10" Weight 203.50 lb BMI (Body Mass Index) 29.2 kg/m2 06/15/2014 2:11pm BP Systolic 110 mmHg BP Diastolic 76 mmHg Heart Rate 76 /min Body Temperature 99.1 F Respiratory Rate 14 /min Height 70 inches 5'10" Weight 206.00 lb BMI (Body Mass Index) 29.6 kg/m2 03/29/2014 3:16pm BP Systolic 110 mmHg BP Diastolic 70 mmHg Heart Rate 96 /min Body Temperature 98.9 F Respiratory Rate 16 /min Height 70 inches 5'10" Weight 234.25 lb BMI (Body Mass Index) 33.6 kg/m2 01/26/2014 2:08pm BP Systolic 110 mmHg BP Diastolic 70 mmHg Heart Rate 120 /min Body Temperature 99.8 F Respiratory Rate 16 /min Height 70 inches 5'10" Weight 245.00 lb BMI (Body Mass Index) 35.1 kg/m2 01/01/2014 8:57am BP Systolic 116 mmHg BP Diastolic 68 mmHg Heart Rate 90 /min Body Temperature 97.4 F Respiratory Rate 16 /min Height 70 inches 5'10" measured 01/01/14 Weight 240.38 lb BMI (Body Mass Index) 34.5 kg/m2 Right Visual Acuity Distance 20/20 Left Visual Acuity Distance 20/20 12/07/2013 1:05pm BP Systolic 110 mmHg BP Diastolic 70 mmHg Heart Rate 88 /min Body Temperature 97.7 F Respiratory Rate 16 /min Height 68 inches 5'8" Measured Weight 242.00 lb BMI (Body Mass Index) 36.8 kg/m2 10/23/2013 1:47pm BP Systolic 116 mmHg BP Diastolic 68 mmHg Heart Rate 78 /min Body Temperature 98.2 F Respiratory Rate 16 /min Height 68 inches 5'8" Measured Weight 238.12 lb BMI (Body Mass Index) 36.2 kg/m2 09/08/2013 1:24pm BP Systolic 116 mmHg BP Diastolic 70 mmHg Heart Rate 100 /min Body Temperature 98.0 F Respiratory Rate 16 /min Height 68 inches 5'8" Measured Weight 226.00 lb BMI (Body Mass Index) 34.4 kg/m2 07/27/2013 11:31am BP Systolic 108 mmHg BP Diastolic 70 mmHg Heart Rate 104 /min Body Temperature 97.8 F Respiratory Rate 18 /min Height 68 inches 5'8" Measured Weight 222.25 lb BMI (Body Mass Index) 33.8 kg/m2 06/05/2013 2:43pm BP Systolic 116 mmHg BP Diastolic 60 mmHg Heart Rate 84 /min Body Temperature 99.1 F Respiratory Rate 16 /min Height 68 inches 5'8" Measured Weight 207.12 lb BMI (Body Mass Index) 31.5 kg/m2 05/08/2013 4:43pm BP Systolic 112 mmHg BP Diastolic 78 mmHg Heart Rate 88 /min Body Temperature 98.8 F Height 68 inches 5'8" Measured Weight 198.50 lb BMI (Body Mass Index) 30.2 kg/m2 06/21/2011 10:45am BP Systolic 126 mmHg BP Diastolic 64 mmHg Heart Rate 76 /min Body Temperature 97.5 F Respiratory Rate 18 /min Height 68 inches 5'8" Measured Weight 160.00 lb BMI (Body Mass Index) 24.3 kg/m2 Body Mass Index Percentile 78 % Weight Percentile 69th Height Percentile 32 % 07/28/2010 2:26pm BP Systolic 110 mmHg BP Diastolic 60 mmHg Heart Rate 66 /min Body Temperature 98.9 F Height 68 inches 5'8" Measured Weight 149.00 lb BMI (Body Mass Index) 22.7 kg/m2 Body Mass Index Percentile 69 % Weight Percentile 62nd Height Percentile 37 % Right Visual Acuity Distance 20/20 Left Visual Acuity Distance 20/20 05/05/2008 8:12am BP Systolic 104 mmHg BP Diastolic 60 mmHg Heart Rate 60 /min Body Temperature 97.8 F Weight 144.00 lb Weight Percentile 84th 01/29/2008 2:47pm BP Systolic 114 mmHg BP Diastolic 64 mmHg Heart Rate 80 /min Height 67 inches 5'7" Weight 141.00 lb BMI (Body Mass Index) 22.1 kg/m2 Body Mass Index Percentile 83 % Weight Percentile 84th Height Percentile 69 % Right Visual Acuity Distance 20/20 Left Visual Acuity Distance 20/20 Results Test Date Facility Test Result H/L Range Note Comprehensive Metabolic 12/23/2018 [facility]) Sodium 137 mEq/L 134-149 Prof Potassium 4.1 mEq/L 3.6-5.5 Chloride 98 mEq/L 94-112 Carbon Dioxide 28 mEq/L 21-32 Glucose 96 mg/dL 70-105 BUN 12 mg/dL 6-26 Creatinine 0.8 mg/dL 0.6-1.4 BUN/Creat Ratio 15.0 CALC 8.0-36.0 Calcium 9.3 mg/dL 8.6-10.2 Total Protein 7.0 g/dL 6.4-8.3 Albumin 4.8 g/dL 3.8-5.5 Globulin 2.2 g/dL 2.0-4.8 A/G Ratio 2.2 CALC 0.6-2.3 Alk. Phosphatase 107 U/L High 22-95 1 Alt (SGPT) 43 U/L High 7-35 2 Ast (Sgot) 27 U/L 5-34 Total Bilirubin 0.3 mg/dL 0.2-1.3 GFR Non- >60 ml/min/1.73m^ >=60 GFR >60 ml/min/1.73m^ >=60 Comprehensive Metabolic 11/21/2018 [facility]) Sodium 135 mEq/L 134-149 Prof Potassium 4.8 mEq/L 3.6-5.5 Chloride 99 mEq/L 94-112 Carbon Dioxide 31 mEq/L 21-32 Glucose 107 mg/dL High 70-105 BUN 18 mg/dL 6-26 Creatinine 0.9 mg/dL 0.6-1.4 BUN/Creat Ratio 20.0 CALC 8.0-36.0 Calcium 9.5 mg/dL 8.6-10.2 Total Protein 7.1 g/dL 6.4-8.3 Albumin 5.2 g/dL 3.8-5.5 Globulin 1.9 g/dL Low 2.0-4.8 A/G Ratio 2.7 CALC High 0.6-2.3 Alk. Phosphatase 86 U/L 22-95 Alt (SGPT) 42 U/L High 7-35 Ast (Sgot) 27 U/L 5-34 Total Bilirubin 0.6 mg/dL 0.2-1.3 GFR Non- >60 ml/min/1.73m^ >=60 GFR >60 ml/min/1.73m^ >=60 CBC Electronic ([facility] New) 11/21/2018 [facility] WBC 7.13 4.0-10.0 (607)- - RBC 5.43 3.93-6.0 Hemoglobin (Fma/CMC/CTX) 16.2 g/dL 12.0-17.0 Hematocrit (Fma/CMC/CTX) 45.8 % 35.0-50.0 Mean Corpuscular Vol 84.3 fL 80-95 Mean Corpuscular Hemoglobin 29.8 pg 25.6-32.2 Mean Corpuscular Hemo Concen 35.4 g/dL 32.2-36.0 Platelets 254 10^3/ul 163-400 RDW-CV 13.1 11.6-14.4 Mean Platelet Volume 10.1 fL 8.0-12.4 Absolute Neutrophils BLD 4.18 1.56-6.13 Absolute Lymphocytes 1.90 1.18-3.74 Absolute Monocytes BLD Auto 0.81 0.24-0.82 Absolute Eos Blood 0.18 0.04-0.54 Absolute Basophils 0.03 0.01-0.08 Neutrophil % 58.7 % 34.0-70.0 Lymph% 26.6 % 20.0-52.0 Monocytes % 11.4 % 5.0-12.0 Eos % 2.5 % 0.7-7.0 Basophil% 0.4 % 0-1.2 Comprehensive Metabolic 10/21/2018 [facility]) Sodium 140 mEq/L 134-149 Prof Potassium 4.4 mEq/L 3.6-5.5 Chloride 102 mEq/L 94-112 Carbon Dioxide 25 mEq/L 21-32 Glucose 95 mg/dL 70-105 BUN 16 mg/dL 6-26 Creatinine 0.9 mg/dL 0.6-1.4 BUN/Creat Ratio 17.8 CALC 8.0-36.0 Calcium 9.7 mg/dL 8.6-10.2 Total Protein 7.6 g/dL 6.4-8.3 Albumin 5.3 g/dL 3.8-5.5 Globulin 2.3 g/dL 2.0-4.8 A/G Ratio 2.3 CALC 0.6-2.3 Alk. Phosphatase 101 U/L High 22-95 Alt (SGPT) 58 U/L High 7-35 Ast (Sgot) 36 U/L High 5-34 Total Bilirubin 0.4 mg/dL 0.2-1.3 GFR Non- >60 ml/min/1.73m^ >=60 GFR >60 ml/min/1.73m^ >=60 CBC Electronic ([facility] New) 10/21/2018 [facility] WBC 9.45 4.0-10.0 (607)- - RBC 5.68 3.93-6.0 Hemoglobin ([facility]ma/CMC/CTX) 16.3 g/dL 12.0-17.0 Hematocrit ([facility]ma/CMC/CTX) 47.5 % 35.0-50.0 Mean Corpuscular Vol 83.6 fL 80-95 Mean Corpuscular Hemoglobin 28.7 pg 25.6-32.2 Mean Corpuscular Hemo Concen 34.3 g/dL 32.2-36.0 Platelets 270 10^3/ul 163-400 RDW-CV 12.9 11.6-14.4 Mean Platelet Volume 9.7 fL 8.0-12.4 Absolute Neutrophils BLD 6.11 1.56-6.13 Absolute Lymphocytes 2.34 1.18-3.74 Absolute Monocytes BLD Auto 0.84 High 0.24-0.82 Absolute Eos Blood 0.08 0.04-0.54 Absolute Basophils 0.04 0.01-0.08 Neutrophil % 64.7 % 34.0-70.0 Lymph% 24.8 % 20.0-52.0 Monocytes % 8.9 % 5.0-12.0 Eos % 0.8 % 0.7-7.0 Basophil% 0.4 % 0-1.2 CBC Auto Diff 08/26/2018 [facility] [place] Blood Count 6.6 10^3/uL N 3.5-10.8 Red Blood Count 5.49 10^6/uL High 4.00-5.40 Hemoglobin 15.9 g/dL N 14.0-18.0 Hematocrit 47 % N 42-52 Mean Corpuscular Volume 85 fL N 80-94 Mean Corpuscular Hemoglobin 29 pg N 27-31 Mean Corpuscular HGB Conc 34 g/dL N 31-36 Red Cell Distribution Width 14 % N 10.5-15 Platelet Count 247 10^3/uL N 150-450 Mean Platelet Volume 8.2 fL N 7.4-10.4 Abs Neutrophils 3.8 10^3/uL N 1.5-7.7 Abs Lymphocytes 2.1 10^3/uL N 1.0-4.8 Abs Monocytes 0.7 10^3/uL N 0-0.8 Abs Eosinophils 0 10^3/uL N 0-0.6 Abs Basophils 0 10^3/uL N 0-0.2 Abs Nucleated RBC 0 10^3/uL Granulocyte % 56.6 % Lymphocyte % 32.1 % Monocyte % 10.9 % Eosinophil % 0.1 % Basophil % 0.3 % Nucleated Red Blood Cells % 0.1 Comprehensive Metabolic 08/15/2018 [facility]) Sodium 136 mEq/L 134-149 Prof Potassium 4.4 mEq/L 3.6-5.5 Chloride 108 mEq/L 94-112 Carbon Dioxide 26 mEq/L 21-32 Glucose 102 mg/dL 70-105 BUN 17 mg/dL 6-26 Creatinine 0.9 mg/dL 0.6-1.4 BUN/Creat Ratio 18.9 CALC 8.0-36.0 Calcium 8.8 mg/dL 8.6-10.2 Total Protein 7.0 g/dL 6.4-8.3 Albumin 4.9 g/dL 3.8-5.5 Globulin 2.1 g/dL 2.0-4.8 A/G Ratio 2.3 CALC 0.6-2.3 Alk. Phosphatase 107 U/L High 22-95 Alt (SGPT) 41 U/L High 7-35 Ast (Sgot) 27 U/L 5-34 Total Bilirubin 0.5 mg/dL 0.2-1.3 GFR Non- >60 ml/min/1.73m^ >=60 GFR >60 ml/min/1.73m^ >=60 CBC Auto Diff 08/13/2018 [facility] [place] Blood Count 7.0 10^3/uL N 3.5-10.8 Red Blood Count 5.36 10^6/uL N 4.00-5.40 Hemoglobin 15.6 g/dL N 14.0-18.0 Hematocrit 45 % N 42-52 Mean Corpuscular Volume 85 fL N 80-94 Mean Corpuscular Hemoglobin 29 pg N 27-31 Mean Corpuscular HGB Conc 34 g/dL N 31-36 Red Cell Distribution Width 14 % N 10.5-15 Platelet Count 252 10^3/uL N 150-450 Mean Platelet Volume 8.1 fL N 7.4-10.4 Abs Neutrophils 4.1 10^3/uL N 1.5-7.7 Abs Lymphocytes 2.3 10^3/uL N 1.0-4.8 Abs Monocytes 0.6 10^3/uL N 0-0.8 Abs Eosinophils 0 10^3/uL N 0-0.6 Abs Basophils 0 10^3/uL N 0-0.2 Abs Nucleated RBC 0 10^3/uL Granulocyte % 59.0 % Lymphocyte % 32.9 % Monocyte % 7.9 % Eosinophil % 0 % Basophil % 0.2 % Nucleated Red Blood Cells % 0.1 CBC Auto Diff 06/24/2018 [facility] [place] Blood Count 8.3 10^3/uL N 3.5-10.8 Red Blood Count 5.37 10^6/uL N 4.00-5.40 Hemoglobin 15.7 g/dL N 14.0-18.0 Hematocrit 46 % N 42-52 Mean Corpuscular Volume 86 fL N 80-94 Mean Corpuscular Hemoglobin 29 pg N 27-31 Mean Corpuscular HGB Conc 34 g/dL N 31-36 Red Cell Distribution Width 13 % N 10.5-15 Platelet Count 256 10^3/uL N 150-450 Mean Platelet Volume 8.3 fL N 7.4-10.4 Abs Neutrophils 5.6 10^3/uL N 1.5-7.7 Abs Lymphocytes 2.0 10^3/uL N 1.0-4.8 Abs Monocytes 0.6 10^3/uL N 0-0.8 Abs Eosinophils 0 10^3/uL N 0-0.6 Abs Basophils 0 10^3/uL N 0-0.2 Abs Nucleated RBC 0 10^3/uL Granulocyte % 67.4 % N 38-83 Lymphocyte % 24.7 % Low 25-47 Monocyte % 7.7 % High 0-7 Eosinophil % 0.1 % N 0-6 Basophil % 0.1 % N 0-2 Nucleated Red Blood Cells % 0.1 CBC Auto Diff 04/22/2018 [facility] [place] Blood Count 9.2 10^3/uL N 3.5-10.8 Red Blood Count 5.20 10^6/uL N 4.00-5.40 Hemoglobin 15.6 g/dL N 14.0-18.0 Hematocrit 45 % N 42-52 Mean Corpuscular Volume 87 fL N 80-94 Mean Corpuscular Hemoglobin 30 pg N 27-31 Mean Corpuscular HGB Conc 35 g/dL N 31-36 Red Cell Distribution Width 13 % N 10.5-15 Platelet Count 273 10^3/uL N 150-450 Mean Platelet Volume 8.0 um3 N 7.4-10.4 Abs Neutrophils 6.8 10^3/uL N 1.5-7.7 Abs Lymphocytes 1.7 10^3/uL N 1.0-4.8 Abs Monocytes 0.6 10^3/uL N 0-0.8 Abs Eosinophils 0.1 10^3/uL N 0-0.6 Abs Basophils 0 10^3/uL N 0-0.2 Abs Nucleated RBC 0 10^3/uL Granulocyte % 74.0 % N 38-83 Lymphocyte % 18.2 % Low 25-47 Monocyte % 6.5 % N 0-7 Eosinophil % 1.1 % N 0-6 Basophil % 0.2 % N 0-2 Nucleated Red Blood Cells % 0.1 Laboratory test 04/15/2018 [facility]) Free T4 1.43 ng/dL 0.75- 1.54 finding TSH 3.89 mIU/L 0.50-6.00 [facility] 04/15/2018 [facility] IgG P93 Ab. Present Abnormal 3 Blot, Serum [address] [place] [address] (569)- - IgG P66 Ab. Present Abnormal IgG P58 Ab. Present Abnormal IgG P45 Ab. Absent IgG P41 Ab. Present Abnormal IgG P39 Ab. Present Abnormal IgG P30 Ab. Absent IgG P28 Ab. Present Abnormal IgG P23 Ab. Present Abnormal IgG P18 Ab. Present Abnormal Lyme IgG WB Interp. Positive Abnormal 4 IgM P41 Ab. Absent IgM P39 Ab. Absent IgM P23 Ab. Present Abnormal Lyme IgM WB Interp. Negative 5 Comprehensive Metabolic 04/15/2018 [facility]) Sodium 138 mEq/L 134-149 Prof Potassium 5.2 mEq/L 3.6-5.5 Chloride 104 mEq/L 94-112 Carbon Dioxide 26 mEq/L 21-32 Glucose 114 mg/dL High 70-105 6 BUN 15 mg/dL 6-26 Creatinine 0.9 mg/dL 0.6-1.4 BUN/Creat Ratio 16.7 CALC 8.0-36.0 Calcium 9.8 mg/dL 8.6-10.2 Total Protein 7.0 g/dL 6.4-8.3 Albumin 4.9 g/dL 3.8-5.5 Globulin 2.1 g/dL 2.0-4.8 A/G Ratio 2.3 CALC 0.6-2.3 Alk. Phosphatase 103 U/L High 22-95 Alt (SGPT) 73 U/L High 7-35 Ast (Sgot) 36 U/L High 5-34 Total Bilirubin 0.3 mg/dL 0.2-1.3 GFR Non- >60 ml/min/1.73m^ >=60 GFR >60 ml/min/1.73m^ >=60 CBC Auto Diff 03/18/[place] [facility] [place] Blood Count 8.9 10^3/uL N 3.5-10.8 Red Blood Count 5.29 10^6/uL N 4.00-5.40 Hemoglobin 16.1 g/dL N 14.0-18.0 Hematocrit 47 % N 42-52 Mean Corpuscular Volume 89 fL N 80-94 Mean Corpuscular Hemoglobin 31 pg N 27-31 Mean Corpuscular HGB Conc 34 g/dL N 31-36 Red Cell Distribution Width 13 % N 10.5-15 Platelet Count 246 10^3/uL N 150-450 Mean Platelet Volume 8.8 um3 N 7.4-10.4 Abs Neutrophils 5.7 10^3/uL N 1.5-7.7 Abs Lymphocytes 2.1 10^3/uL N 1.0-4.8 Abs Monocytes 0.6 10^3/uL N 0-0.8 Abs Eosinophils 0.4 10^3/uL N 0-0.6 Abs Basophils 0 10^3/uL N 0-0.2 Abs Nucleated RBC 0 10^3/uL Granulocyte % 63.8 % N 38-83 Lymphocyte % 23.8 % Low 25-47 Monocyte % 7.1 % High 0-7 Eosinophil % 5.0 % N 0-6 Basophil % 0.3 % N 0-2 Nucleated Red Blood Cells % 0 Clozapine (Clozaril) 03/18/2018 [facility] [place] 59 ng/mL >350 Norclozapine 43 ng/mL Clozapine Norclozapine Level 102 ng/mL >450 7 Comprehensive Metabolic 12/23/2017 Bailey Ludy(fma) Sodium 140 mEq/L 134-149 Prof Potassium 4.8 mEq/L 3.6-5.5 Chloride 102 mEq/L 94-112 Carbon Dioxide 26 mEq/L 21-32 Glucose 94 mg/dL 70-105 BUN 18 mg/dL 6-26 Creatinine 0.7 mg/dL 0.6-1.4 BUN/Creat Ratio 25.7 CALC 8.0-36.0 Calcium 9.6 mg/dL 8.6-10.2 Total Protein 7.0 g/dL 6.4-8.3 Albumin 4.9 g/dL 3.8-5.5 Globulin 2.1 g/dL 2.0-4.8 A/G Ratio 2.3 CALC 0.6-2.3 Alk. Phosphatase 68 U/L 22-95 Alt (SGPT) 27 U/L 7-35 Ast (Sgot) 17 U/L 5-34 Total Bilirubin 0.4 mg/dL 0.2-1.3 GFR Non- >60 ml/min/1.73m^ >=60 GFR >60 ml/min/1.73m^ >=60 CBC Electronic a 12/23/2017 Leo Boston([facility]) WBC 8.0 x10^3/UL 4.0- 10.0 RBC 5.02 x10^6/UL 3.93-6.00 HGB 15.2 g/dL 12.0-17.0 HCT 45 % 35-50 MCV 89.2 fL 80.0-95.0 MCH 30.3 pg 25.6-32.2 MCHC 33.9 g/dL 32.2-36.0 RDW-CV 13.4 % 11.6-14.4 PLT 262 x10^3/UL 163-400 MPV 10.3 fL 9.4-12.4 Rose# 4.49 x10^3/UL 1.56-6.13 Lymph# 2.18 x10^3/UL 1.18-3.74 [place]# 0.68 x10^3/UL 0.24-0.82 Eos # 0.6 x10^3/UL High 0.0-0.5 Baso # 0.02 x10^3/UL 0.01-0.08 Rose% 56.0 % 34.0-70.0 Lymph % 27.3 % 20.0-52.0 [place]% 8.5 % 5.0-12.0 Eos% 7.5 % High 0.7-7.0 Baso% 0.3 % 0.1-1.2 CBC Auto Diff 04/17/2017 [facility] [place] Blood Count 11.4 10^3/uL High 3.5- 10.8 Red Blood Count 4.89 10^6/uL N 4.0-5.4 Hemoglobin 15.1 g/dL N 14.0-18.0 Hematocrit 44 % N 42-52 Mean Corpuscular Volume 91 fL N 80-94 Mean Corpuscular Hemoglobin 31 pg N 27-31 Mean Corpuscular HGB Conc 34 g/dL N 31-36 Red Cell Distribution Width 14 % N 10.5-15 Platelet Count 259 10^3/uL N 150-450 Mean Platelet Volume 8 um3 N 7.4-10.4 Abs Neutrophils 8.2 10^3/uL High 1.5-7.7 Abs Lymphocytes 2.1 10^3/uL N 1.0-4.8 Abs Monocytes 0.8 10^3/uL N 0-0.8 Abs Eosinophils 0.2 10^3/uL N 0-0.6 Abs Basophils 0.1 10^3/uL N 0-0.2 Abs Nucleated RBC 0 10^3/uL N Granulocyte % 71.8 % N 38-83 Lymphocyte % 18.5 % Low 25-47 Monocyte % 7.2 % N 1-9 Eosinophil % 2.0 % N 0-6 Basophil % 0.5 % N 0-2 Nucleated Red Blood Cells % 0 N Comp Metabolic Panel 04/17/2017 [facility] Sodium 137 mmol/L N 133-145 Potassium 4.1 mmol/L N 3.5-5.0 Chloride 102 mmol/L N 101-111 Co2 Carbon Dioxide 27 mmol/L N 22-32 Anion Gap 8 mmol/L N 2-11 Glucose 96 mg/dL N 70-100 Blood Urea Nitrogen 17 mg/dL N 6-24 Creatinine 0.93 mg/dL N 0.67-1.17 BUN/Creatinine Ratio 18.3 N 8-20 Calcium 9.1 mg/dL N 8.6-10.3 Total Protein 7.2 g/dL N 6.4-8.9 Albumin 4.7 g/dL N 3.2-5.2 Globulin 2.5 g/dL N 2-4 Albumin/Globulin Ratio 1.9 N 1-3 Total Bilirubin 0.50 mg/dL N 0.2-1.0 Alkaline Phosphatase 78 U/L N 34-104 Alt 39 U/L N 7-52 Ast 24 U/L N 13-39 Egfr Non- 100.7 N >60 Egfr 129.5 N >60 8 Laboratory test finding 04/17/2017 [facility] TSH (Thyroid Stim 1.13 mcIU/mL N 0.34-5.60 Horm) Acetaminophen < 15 g/mL N 9 Alcohol < 10 mg/dL N <10 Salicylate < 2.50 mg/dL N <30 Urinalysis Profile 04/17/2017 [facility] Urine Color Yellow N Urine Appearance Clear N Urine Specific [place] 1.017 N 1.010-1.030 Urine pH 7.0 N 5-9 Urine Urobilinogen Negative N Negative Urine Ketones Negative N Negative Urine Protein Negative N Negative Urine Leukocytes Negative N Negative Urine Blood Negative N Negative * * Abnormal Negative 10 Urine Nitrite Negative N Negative Urine Bilirubin Negative N Negative Urine Glucose Negative N Negative Urine Drug SCR ED 04/17/2017 [facility] Amphetamine Ur Screen None Detected N None Detect & [facility] Barbiturates Urine Screen None Detected N None Detect Benzodiazepine Urine Screen None Detected N None Detect Urine Cannabinoids Screen None Detected N None Detect Urine Cocaine Screen None Detected N None Detect Urine Opiates Screen None Detected N None Detect Urine Phencyclidine Screen None Detected N None Detect 11 Laboratory test finding 11/02/2013 [facility] Acetaminophen < 15 g/mL 12 Alcohol < 10 mg/dL <10 Salicylate < 2.50 mg/dL <30 Comp Metabolic Panel 11/02/2013 [facility] Sodium 137 mmol/L 133-145 Potassium 4.1 mmol/L 3.7-5.6 Chloride 101 mmol/L 101-111 Co2 Carbon Dioxide 25 mmol/L 22-32 Anion Gap 11 mmol/L 2-11 Glucose 87 mg/dL 70-100 Blood Urea Nitrogen 15 mg/dL 6-24 Creatinine 1.02 mg/dL 0.67-1.17 BUN/Creatinine Ratio 14.7 8-20 Calcium 9.7 mg/dL 8.6-10.3 Total Protein 7.7 g/dL 6.4-8.9 Albumin 5.1 g/dL 3.2-5.2 Globulin 2.6 g/dL 2-4 Albumin/Globulin Ratio 2.0 1-3 Total Bilirubin 0.40 mg/dL 0.2-1.0 Alkaline Phosphatase 97 U/L 34-104 Alt 61 U/L High 7-52 Ast 34 U/L 13-39 Egfr Non- 93.1 >60 Egfr 119.7 >60 13 Laboratory test finding 11/02/2013 [facility] Creatine Kinase 153 U/L 10-223 TSH (Thyroid Stimulating Horm) 1.85 IU/mL 0.34-5.60 Urine Drug SCR ED 11/02/2013 [facility] Amphetamine Ur Screen None Detected None Detect & Pain Clinic Barbiturates Urine Screen None Detected None Detect Benzodiazepine Urine Screen None Detected None Detect Urine Cannabinoids Screen None Detected None Detect Urine Cocaine Screen None Detected None Detect Urine Opiates Screen None Detected None Detect Urine Phencyclidine Screen None Detected None Detect 14 Urinalysis 11/02/2013 [facility] Urine Color Yellow Urine Appearance Clear Urine Specific [place] 1.029 1.010-1.030 Urine Esterase Negative Negative Urine Nitrate Negative Negative Urine Urobilinogen Negative E.U./dL Negative Urine Protein Negative mg/dL Negative Urine pH 5.5 5-9 Urine Blood Negative Negative Urine Ketones Trace mg/dL Abnormal Negative Urine Bilirubin Negative Negative Urine Glucose Negative mg/dL Negative CBC Auto Diff 11/02/2013 [facility] White Blood Count 14.7 10^3/uL High 4.8- 10.8 Red Blood Count 5.27 10^6/uL 4.0-5.4 Hemoglobin 15.2 g/dL 14.0-18.0 Hematocrit 45 % 42-52 Mean Corpuscular Volume 86 fL 80-94 Mean Corpuscular Hemoglobin 29 pg 27-31 Mean Corpuscular HGB Conc 34 g/dL 31-36 Red Cell Distribution Width 13 % 10.5-15 Platelet Count 259 10^3/uL 150-450 Mean Platelet Volume 9 um3 7.4-10.4 Abs Neutrophils 11.6 10^3/uL High 1.5-7.7 Abs Lymphocytes 2.2 10^3/uL 1.0-4.8 Abs Monocytes 0.8 10^3/uL 0-0.8 Abs Eosinophils 0.1 10^3/uL 0-0.6 Abs Basophils 0 10^3/uL 0-0.2 Abs Nucleated RBC 0 10^3/uL Granulocyte % 78.7 % 38-83 Lymphocyte % 15.0 % Low 25-47 Monocyte % 5.6 % 1-9 Eosinophil % 0.5 % 0-6 Basophil % 0.2 % 0-2 Nucleated Red Blood Cells % 0 Laboratory test 06/05/2013 Bailey Ludy(fma) Free T4 1.32 ng/dL 0.75- 1.54 finding TSH 1.91 mIU/L 0.50-6.00 Comprehensive Metabolic 06/05/2013 Bailey Ludy(fma) Albumin 5.4 g/dL 3.8-5.5 Prof Alk. Phos. 116 U/L High 22-95 Alt (SGPT) 46 U/L High 10-40 Ast (Sgot) 32 U/L 5-34 BUN 13 mg/dL 6-26 Calcium 9.0 mg/dL 8.6-10.2 Chloride 100 mEq/L 94-112 Creatinine 1.0 mg/dL 0.6-1.4 Carbon Dioxide 26 mEq/L 21-32 Glucose 90 mg/dL 70-105 Sodium 138 mEq/L 134-149 Total Bilirubin 0.4 mg/dL 0.2-1.3 Total Protein 7.9 g/dL 6.3-8.1 Potassium 4.6 mEq/L 3.6-5.5 Globulin 2.6 g/dL 2.0-4.8 A/G Ratio 2.1 Calc 0.6-2.3 BUN/Creat Ratio 13.4 Calc 8.0-36.0 CBC Auto Diff 06/29/2011 [facility] White Blood Count 15.8 CUMM High 4.8-10.8 Red Cell Count 5.24 CUMM 4.6-6.2 Hemoglobin 16.0 g/dL 14.0-18.0 Hematocrit 46 % 42-52 Mean Corpuscular Volume 88 um3 80-94 Mean Corpuscular Hemoglob 31 pg 27-31 Mean Corpuscular HGB Cone 35 g/dL 32-36 Redcell Distribution WDTH 12 % 10.5-15 Platelet Count 273 CUMM 150-450 Mean Platelet Volume 8.3 um3 7.4-10.4 Manual Differential 06/29/2011 [facility] Polysegmented Neutrophil 79 % 38-83 Band Neutrophil 2 % 0-8 Lymphocyte 18 % Low 25-47 Monocyte 1 % 0-13 Absolute Neutrophil Count 12.7 RBC Morphology NORMAL Comp Metabolic Panel 06/29/2011 [facility] Sodium 139 mmol/L 135-145 Potassium 3.6 mmol/L 3.5-5.0 Chloride 105 mmol/L 101-111 Co2 (Carbon Dioxide) 24.0 mmol/L 22-32 Anion Gap 10.0 mmol/L 2-11 15 Glucose 158 mg/dL High 70-100 BUN 14 mg/dL 6-24 Creatinine 0.8 mg/dL 0.50-1.40 One Over Creatinine 1.25 BUN/Creatinine Ratio 17.5 8-20 Calcium 8.7 mg/dL 8.1-9.9 Total Protein 6.9 GM/DL 6.2-8.1 Albumin 4.7 GM/DL 3.6-5.4 Globulin 2.2 GM/DL 2-4 Albumin/Globulin Ratio 2.1 1-3 Bilirubin Total 0.8 mg/dL 0.4-1.5 16 Alkaline Phosphatase 100 U/L 50-176 Alt (SGPT) 31 U/L 17-63 Ast (Sgot) 26 U/L 12-42 Laboratory test finding 06/29/2011 [facility] Acetaminophen < 10 g/mL Low 10- 30 17 Alcohol 169.1 mg/dL High None Detected 18 Salicylate < 4.0 mg/dL Less Than 30 19 Ua - Non Micro (Fma) 07/28/2010 Family Medicine Appearance CLEAR (607)- - Color YELLOW Glucose NEG Bilirubin NEG Ketones NEG SP Grav 1.025 Blood NEG PH 7.0 Protein NEG Urobil 0.2 E.U./dL Nitrite NEG Leukocytes (Fma/CMC/Centrex) NEG 1 RESULTS VERIFIED BY REPEAT ANALYSIS 2 RESULTS VERIFIED BY REPEAT ANALYSIS 3 1 SST 4 Positive: 5 of the following Borrelia-specific bands: 18,23,28,30,39,41,45,58, 66, and 93. Negative: No bands or banding patterns which do not meet positive criteria. 5 Note: An equivocal or positive EIA result followed by a negative Western Blot result is considered NEGATIVE. An equivocal or positive EIA result followed by a positive Western Blot is considered POSITIVE by the CDC. Positive: 2 of the following bands: 23,39 or 41 Negative: No bands or banding patterns which do not meet positive criteria. Criteria for positivity are those recommended by CDC/ASTPHLD. p23=Osp C, y63=pttwivvdu Note: Sera from individuals with the following may cross react in the Lyme Western Blot assays: other spirochetal diseases (periodontal disease, leptospirosis, relapsing fever, yaws, and pinta); connective autoimmune (Rheumatoid Arthritis and Systemic Lupus Erythematosus and also individuals with Antinuclear Antibody); other infections ([place] Spotted Fever; Kristen-Mercedes Virus, and Cytomegalovirus). 6 RESULTS VERIFIED BY REPEAT ANALYSIS 7 ADDITIONAL INFORMATION This test was developed and its performance characteristics determined by [facility] in a manner consistent with CLIA requirements. This test has not been cleared or approved by the U.S. Food and Drug Administration. Test Performed by: [facility] [address] [place] [address] 8 Because ethnic data is not always readily available, this report includes an eGFR for both -Americans and non- Americans. The National Kidney Disease Education Program (NKDEP) does not endorse the use of the MDRD equation for patients that are not between the ages of 18 and 70, are , have extremes of body size, muscle mass, or nutritional status, or are non- or non-. According to the National Kidney Foundation, irrespective of diagnosis, the stage of the disease is based on the level of kidney function: Stage Description GFR(mL/min/1.73 m(2)) 1 Kidney damage with normal or decreased GFR 90 2 Kidney damage with mild decrease in GFR 60-89 3 Moderate decrease in GFR 30-59 4 Severe decrease in GFR 15-29 5 Kidney failure <15 (or dialysis) 9 Therapeutic concentration: <50 ug/mL Toxic concentration: >120 ug/mL 10 *Ascorbic acid is present which may interfere with detection of blood. 11 The urine specimen was tested at the listed cutoffs: Drug class test level (ng/mL) Amphetamines 500 Barbiturates 200 Benzodiazepine metabolites 200 Cocaine metabolites 150 Cannabinoids 50 Opiates 300 Pcp 25 Specimen was received without chain of custody. Results should be used for medical purposes only. 12 Therapeutic concentration: <50 ug/mL Toxic concentration: >120 ug/mL 13 Because ethnic data is not always readily available, this report includes an eGFR for both -Americans and non- Americans. The National Kidney Disease Education Program (NKDEP) does not endorse the use of the MDRD equation for patients that are not between the ages of 18 and 70, are , have extremes of body size, muscle mass, or nutritional status, or are non- or non-. According to the National Kidney Foundation, irrespective of diagnosis, the stage of the disease is based on the level of kidney function: Stage Description GFR(mL/min/1.73 m(2)) 1 Kidney damage with normal or decreased GFR 90 2 Kidney damage with mild decrease in GFR 60-89 3 Moderate decrease in GFR 30-59 4 Severe decrease in GFR 15-29 5 Kidney failure <15 (or dialysis) 14 The urine specimen was tested at the listed cutoffs: Drug class test level (ng/ml) Amphetamines 300 Barbituates 200 Benzodiazepine metabolites 200 Cocaine metabolites 300 Cannabinoids 25 Opiates 200 Pcp 25 This is a screening procedure. Positive results are not confirmed. Specimen was received without chain of custody. Results should be used for medical purposes only. 15 Anion gap measurement may be of limited value in the presence of any alkalosis, especially in a combined acid base disorder. . 16 A metabolite of Naproxen, O-desmethylnaproxen, has been shown to interfere with the Jendrassik-Klever method for measuring total bilirubin. Samples from patients who have taken Naproxen have shown spurious elevation in total bilirubin levels. 17 TOXIC LEVELS: GREATER THAN 150 MCG/ML @ 4HR POST INGEST GREATER THAN 50 MCG/ML @ 12HR POST INGEST The detection limit for ACETAMINOPHEN is 10.0 mcg/ml . Values less than 10.0 mcg/ml cannot be accurately measured. . 18 The detection limit for ETHANOL is 10.0 mg/dl . Values less than 10.0 mg/dl cannot be accurately measured. . 19 The detection limit for SALICYLATE is 4.0 mg/dl. Values less than 4.0 mg/dl cannot be accurately measured. . Procedures Date Code Description Status 01/23/2019 28420 Electrocardiogram Complete Completed 12/02/2017 67060 Electrocardiogram Complete Completed 01/01/2014 56737 Vision Test- screening test of visual acuity, Completed quantitative, bila 01/29/2008 19379 Vision Test- screening test of visual acuity, Completed quantitative, bila Encounters Type Date Location Provider Dx Diagnosis Office Visit 01/26/2019 Main Office Shantanu Staples, Z11.1 Encounter for 2:15p M.D. screening for respiratory tuberculosis Office Visit 01/20/2019 Main Office Shantanu Staples, A69.29 Other conditions 4:20p M.D. 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 associated with Lyme disease F20.9 Schizophrenia, unspecified R94.5 Abnormal results of liver function studies Z23 Encounter for immunization Office Visit 07/14/2018 4:40p Main Office Shantanu Staples, A69.29 Other conditions M.D. associated with Lyme disease R53.83 Other fatigue Office Visit 06/07/2018 10:40a Main Office Shantanu Staples, A69.29 Other conditions M.D. associated with Lyme disease H60.8x1 Other otitis externa, right ear F20.9 Schizophrenia, unspecified F90.9 Attention-deficit hyperactivity disorder, unspecified type Office Visit 05/09/2018 4:40p Main Office Shantanu Staples, A69.29 Other conditions M.D. associated with Lyme disease R53.83 Other fatigue Office Visit 04/15/2018 11:20a Main Office Shantanu Staples M.D. M79.1 Myalgia M13.0 Polyarthritis, unspecified R53.83 Other fatigue F20.9 Schizophrenia, unspecified Office Visit 12/23/2017 10:20a Main Office Shantanu Staples, F20.9 Schizophrenia, M.D. unspecified F90.9 Attention-deficit hyperactivity disorder, unspecified type Z79.899 Other senior care (current) drug therapy Office Visit 04/26/2017 11:00a [facility] Amy Ruano R53.83 Other fatigue Office MEGHANN Guo Office Visit 04/11/2017 6:30p Main Office Amy Ruano Z23 Encounter for MEGHANN Guo immunization Z00.00 Encntr for general adult medical exam w/o abnormal findings Office Visit 09/17/2014 4:40p Main Office Shantanu Staples, 314.00 Attention Deficit M.D. Disorder W/O Mention Of Hyperactivity 311 Depressive Disorder Not Elsewhere Spec 300.00 Anxiety State Unspec Office Visit 07/26/2014 11:00a Main Office Shantanu Staples, 314.00 Attention Deficit M.D. Disorder W/O Mention Of Hyperactivity 311 Depressive Disorder Not Elsewhere Spec 300.00 Anxiety State Unspec Office Visit 06/25/2014 1:20p Main Office Shantanu Staples, 311 Depressive Disorder M.D. Not Elsewhere Spec 314.00 Attention Deficit Disorder W/O Mention Of Hyperactivity Office Visit 06/15/2014 2:00p Main Office Shantanu Staples, 311 Depressive Disorder M.D. Not Elsewhere Spec 314.00 Attention Deficit Disorder W/O Mention Of Hyperactivity 719.46 Pain Joint Lower Leg v04.81 Need For Prophylactic Vaccination & Inoculation/Influenza Office Visit 03/29/2014 3:00p Main Office Shantanu Staples, 311 Depressive Disorder M.D. Not Elsewhere Spec 314.00 Attention Deficit Disorder W/O Mention Of Hyperactivity 300.00 Anxiety State Unspec Office Visit 01/26/2014 2:10p Main Office Shantanu Staples, 311 Depressive Disorder M.D. Not Elsewhere Spec 300.00 Anxiety State Unspec 314.00 Attention Deficit Disorder W/O Mention Of Hyperactivity Office Visit 01/01/2014 8:40a Main Office Shantanu Staples, V70.0 Examination General M.D. Medical Routine AT Health Care Facility 311 Depressive Disorder Not Elsewhere Spec 300.00 Anxiety State Unspec 314.00 Attention Deficit Disorder W/O Mention Of Hyperactivity v06.5 Tetanus Diphtheria (DT) V72.0 Examination Eyes & Vision Office Visit 12/07/2013 1:00p Main Office Shantanu Staples, 311 Depressive Disorder M.D. 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 Not Elsewhere Spec 780.52 Insomnia Unspecified 300.00 Anxiety State Unspec Office Visit 09/08/2013 1:20p Main Office Shantanu Staples, 311 Depressive Disorder M.D. Not Elsewhere Spec 300.00 Anxiety State Unspec 780.52 Insomnia Unspecified Office Visit 07/27/2013 11:20a Main Office Shantanu Staples, 311 Depressive Disorder M.D. Not Elsewhere Spec 300.00 Anxiety State Unspec 780.52 Insomnia Unspecified Office Visit 06/05/2013 2:40p Main Office Shantanu Staples, 311 Depressive Disorder M.D. Not Elsewhere Spec 300.00 Anxiety State Unspec 780.52 Insomnia Unspecified 333.1 Tremor Essential & Other Forms Office Visit 05/08/2013 4:40p Main Office Shantanu Staples, 311 Depressive Disorder M.D. Not Elsewhere Spec 300.00 Anxiety State Unspec 780.52 Insomnia Unspecified Office Visit 06/21/2011 10:20a [facility] Shantanu Messer 726.19 Shoulder Sloan Staples Disorders Other Spec V04.89 Need For Prophylactic Vaccination & Inoculation Other Virus Office Visit 07/28/2010 2:20p Main Office Shantanu Messer V20.2 Routinerafael M.D. includes infant Office Visit 05/05/2008 8:10a Main Office Shantanu Messer 709.9 Skin & Subcutaneous Sloan Staples Tissue Disorders Unspec Office Visit 01/29/2008 2:20p [facility] Office Shantanu Messer V20.2 Routine child Sloan Staples includes Plan of Treatment Future Appointment(s):02/02/2019 4:40 pm - Shantanu Staples M.D. at Main [id number]/30/2019 - Terrell Escobar-CF20.9 Schizophrenia, unspecifiedAllComments:Medication Management Patient Understands medications he' s taking? Yes No Are there Barriersto Adherence? Yes No Has the patient been asked about herbal supplements and therapies, and OTC meds? Yes No Care Plan1. Patient has been queried about patient's goals/ preferences and functional/lifestyle goals at relevant visits. If relevant, describe: na2. Treatment goals asexplained to the patient: abovemanagement of psychosisroutine health maintenance 3. Are there barriers to meeting treatment goals? Yes No If Yes, please describe:4. Self-Management goals as described to the patient: Yes No reviewed with Dr Staples, pt is medically cleared to restart clonazapine.heas routine f/u with Dr Staples next week , which he prefers to keep
[2019-01-31 14:38] VITALS: BP 120/75
--- NOTE | 2019-01-31 15:08 | UC ---
UC General HPI - HPI Summary HPI Summary: fell down 4 steps injuring left 5th finger some minimal back pain - History of Current Complaint Chief Complaint: UCUpperExtremity Stated Complaint: BACK / LT HAND INJURY Time Seen by Provider: 01/31/19 14:31 Hx Obtained From: Patient Onset/Duration: Sudden Onset Timing: Constant Pain Intensity: 4 Pain Location at: left 5th finger - Allergy/Home Medications Allergies/Adverse Reactions: Allergies Allergy/AdvReac Type Severity Reaction Status Date / Time bupropion [From Wellbutrin] Allergy Itching Verified 01/31/19 14:34 Home Medications: Home Medications Divalproex ER TAB(*) [Depakote ER TAB(*)] 500 mg PO DAILY 01/31/19 [History Confirmed 01/31/19] Minocycline (NF) 100 mg PO BID 01/31/19 [History Confirmed 01/31/19] metFORMIN* [Glucophage 500 MG TAB *] 500 mg PO BID 01/31/19 [History Confirmed 01/31/19] risperiDONE TAB* [RisperDAL*] 2 mg PO TID 01/31/19 [History Confirmed 01/31/19] PMH/Surg Hx/FS Hx/Imm Hx Endocrine History: Diabetes Psychological History: Bipolar Disorder, Schizophrenia - Surgical History Surgical History: None - Family History Known Family History: Positive: Other - epilepsy - Social History Occupation: Student Lives: With Family Alcohol Use: Rare Substance Use Type: None Smoking Status (MU): Former Smoker Amount Used/How Often: Pt has not smoked in last 30 days or used any tobacoo products. When Did the Patient Quit Smoking/Using Tobacco: 10 days - Immunization History Most Recent Influenza Vaccination: fall 2012 Most Recent Tetanus Shot: unk Most Recent Pneumonia Vaccination: unk Review of Systems All Other Systems Reviewed And Are Negative: Yes Constitutional: Positive: Negative Skin: Positive: Negative Eyes: Positive: Negative ENT: Positive: Negative Respiratory: Positive: Negative Cardiovascular: Positive: Negative Gastrointestinal: Positive: Negative Genitourinary: Positive: Negative Motor: Positive: Negative Musculoskeletal: Positive: Arthralgia - left 5th finger pain Neurological: Positive: Negative Psychological: Positive: Negative Is Patient Immunocompromised?: No Physical Exam Triage Information Reviewed: Yes Appearance: Well-Appearing, No Pain Distress, Well-Nourished Vital Signs: Initial Vital Signs Temp 98.8 F 01/31/19 14:30 Pulse 93 01/31/19 14:30 Resp 16 01/31/19 14:30 BP 120/75 01/31/19 14:30 Pulse Ox 97 01/31/19 14:30 Vital Signs Reviewed: Yes Eye Exam: Normal Eyes: Positive: Conjunctiva Clear ENT Exam: Normal ENT: Positive: Normal ENT inspection, Hearing grossly normal. Negative: Trismus , Muffled voice, Hoarse voice Neck exam: Normal Neck: Positive: Supple, Nontender, No Lymphadenopathy Respiratory Exam: Normal Respiratory: Positive: Chest non-tender, No respiratory distress, No accessory muscle use Cardiovascular Exam: Normal Cardiovascular: Positive: RRR, Pulses Normal, Brisk Capillary Refill Musculoskeletal Exam: Normal Musculoskeletal: Positive: Strength Intact, ROM Intact, No Edema Neurological Exam: Normal Neurological: Positive: Alert, Muscle Tone Normal Psychological Exam: Normal Skin Exam: Normal Diagnostics - Radiology No standard instances Radiology Interpretation Completed By: Radiologist - negative for fracture Course/Dx - Course Course Of Treatment: natali tape, ice ibuprofen follow with pcp prn - Diagnoses Provider Diagnosis: Sprain of left little finger Discharge - Sign-Out/Discharge Documenting (check all that apply): Patient Departure All imaging exams completed and their final reports reviewed: Yes - Discharge Plan Condition: Stable Disposition: HOME Patient Education Materials: Acetaminophen (By mouth), Finger Sprain (ED), R.I.C.E. Treatment (ED) Referrals: Shantanu Staples MD [Primary Care Provider] - If Needed - Billing Disposition and Condition Condition: STABLE Disposition: Home
== END 2019-01-31 15:32 | disposition home or self-care (01) ==
LOC: UCEAST 14:23
DX: S63.617A Unspecified sprain of left little finger, initial encounter (principal); W10.9XXA Fall (on) (from) unspecified stairs and steps, initial encounter; Y92.9 Unspecified place or not applicable; Z87.891 Personal history of nicotine dependence
CPT/HCPCS: 73140; 99211; G0463

== ENCOUNTER 2019-02-09 12:59 | Inpatient (IN) | payer OTHER ==
[2019-02-09 14:14] LABS: ABS Eosinophils 0.1 10^3/ul (0-0.6); ABS Lymphocytes 1.7 10^3/ul (1.0-4.8); ABS Monocytes 0.6 10^3/ul (0-0.8); ABS Neutrophils 7.8 10^3/ul (1.5-7.7); Eosinophil % 1.2 %; Hematocrit 49 % (42-52); Hemoglobin 16.7 g/dL (14.0-18.0); Lymphocyte % 16.7 %; Mean Corpuscular HGB Conc 34 g/dL (31-36); Mean Corpuscular Hemoglobin 29 pg (27-31); Mean Corpuscular Volume 86 fL (80-94); Mean Platelet Volume 8.3 fL (7.4-10.4); Nucleated Red Blood Cells % 0.1; Platelet Count 241 10^3/uL (150-450); Red Blood Count 5.68 10^6 /uL (4.18-5.48); Red Cell Distribution Width 13 % (10-15); White Blood Count 10.2 10^3/uL (3.5-10.8)
[2019-02-09 14:23] LABS: Urine Appearance Cloudy; Urine Bilirubin Negative (Negative); Urine Blood Negative (Negative); Urine Color Amber; Urine Glucose Negative (Negative); Urine Ketones Trace (Negative); Urine Nitrite Negative (Negative); Urine Protein Negative (Negative); Urine Urobilinogen Negative (Negative)
[2019-02-09 14:36] LABS: Urine Benzodiazepine Screen None Detected (None Detect); Urine Opiates Screen None Detected (None Detect)
[2019-02-09 14:38] LABS: ALT 28 U/L (7-52); AST 21 U/L (13-39); Albumin 4.8 g/dL (3.2-5.2); Alkaline Phosphatase 116 U/L (34-104); Anion Gap 8 mmol/L (2-11); BUN/Creatinine Ratio 16.8 (8-20); Blood Urea Nitrogen 18 mg/dL (6-24); CO2 Carbon Dioxide 26 mmol/L (22-32); Calcium 9.7 mg/dL (8.6-10.3); Chloride 105 mmol/L (101-111); EGFR African American 101.9 (>60); EGFR Non-African American 84.2 (>60); Globulin 2.4 g/dL (2-4); Glucose 147 mg/dL (70-100); Potassium 4.5 mmol/L (3.5-5.0); Sodium 139 mmol/L (135-145); Total Protein 7.2 g/dL (6.4-8.9)
--- NOTE | 2019-02-09 14:42 | ED ---
Psychiatric Complaint - HPI Summary HPI Summary: This patient is a 23 year old M presenting to [facility] accompanied by his step- father with a chief complaint of suicidal ideations for the past few days. The pt states that he has been seeing auditory and hallucinations for about a month due to a history of schizophrenia. He states that he was taken off his medications for a PICC line and IV ABX for lymes disease. Winifrede was attempting to help the pt return to his antipsychotic medications after the ABX treatment but the pt states that the medications were not helping. He reports seeing a vision of him cutting his wrists with a razor which made him come in today. He also held a knife to his throat earlier this month. He reports that the visions and auditory hallucinations have been worsening this past month. He reports taking all of his medications today. He denies CP, SOB, N/V/D, abdominal pain, fevers, headaches, chills, diaphoresis, coughs and HI. He reports no alleviating factors. He states that he currently lives with his mother and step-father and he is currently a student at [employer]. Patient s medication reviewed this visit. - History Of Current Complaint Chief Complaint: EDSuicidal Time Seen by Provider: 02/09/19 13:20 Hx Obtained From: Patient, Family/Area Operations Manager - step-father Onset/Duration: Gradual Onset, Lasting Weeks - about a month, Still Present, Worse Since Timing: Constant Severity Initially: Mild Severity Currently: Severe Aggravating Factor(s): Other - Was taken off medications for a PICC line Alleviating Factor(s): Nothing Associated Signs And Symptoms: Positive: Negative - CP, SOB, N/V/D, abdominal pain, fevers, headaches, chills, diaphoresis, coughs and HI, Hallucinating - auditory and visual Related History: Positive For: Prior Psychiatric Issues - Dx schizophrenia Has Suicidal: Reports: Thoughts, With A Plan Has Homicidal: Denies: Thoughts - Allergies/Home Medications Allergies/Adverse Reactions: Allergies Allergy/AdvReac Type Severity Reaction Status Date / Time bupropion [From Wellbutrin] Allergy Itching Verified 01/31/19 14:34 Home Medications: Home Medications CloZAPine TAB* 25 mg PO BID 02/09/19 [History Confirmed 02/09/19] PMH/Surg Hx/FS Hx/Imm Hx Previously Healthy: Yes Endocrine/Hematology History: Denies: Hx Diabetes Cardiovascular History: Denies: Hx Hypertension, Hx Pacemaker/ICD Respiratory History: Denies: Hx Asthma History: Denies: Hx Renal Disease Sensory History: Reports: Hx Contacts or Glasses Denies: Hx Legally Blind, Hx Deafness, Hx Hearing Aid Opthamlomology History: Reports: Hx Contacts or Glasses Denies: Hx Legally Blind Psychiatric History: Reports: Hx Inpatient Treatment, Hx Community Mental Health Tx, Hx Bipolar Disorder Denies: Hx Eating Disorder, Hx Panic Disorder, Hx of Violent Episodes Against Others - Surgical History Surgical History: None Infectious Disease History: No Infectious Disease History: Denies: Traveled Outside the [place] in Last 30 Days - Family History Known Family History: Positive: Other - epilepsy, Non-Contributory - Social History Occupation: Student - [employer] Lives: With Family - mother and step-father Alcohol Use: Rare Hx Substance Use: No Substance Use Type: Reports: None Hx Tobacco Use: No Smoking Status (MU): Former Smoker Amount Used/How Often: Pt has not smoked in last 30 days or used any tobacoo products. Review of Systems Constitutional: Negative Negative: Fever, Chills, Skin Diaphoresis Negative: Chest Pain Negative: Shortness Of Breath, Cough Negative: Abdominal Pain, Vomiting, Diarrhea, Nausea Negative: Headache Positive: Other - POSITIVE: SI, auditory and visual hallucinations NEGATIVE: HI All Other Systems Reviewed And Are Negative: Yes Physical Exam - Summary Physical Exam Summary: Vital Signs Reviewed: Yes A+Ox3, no distress, appropriate Eyes: Conjunctiva Clear, ENT: Hearing grossly normal mmoist, Neck: Positive: Supple Respiratory: Positive: No respiratory distress, No accessory muscle use + CTA throughout no w/r Cardiovascular: RRR nl s1, s2 no m/r CBT <2 sec abd soft + BS nt/nd no guarding, no distension Musculoskeletal Exam: PAULA x 4 without difficulty Strength Intact, ROM Intact Neurological: Positive: Alert, ambulatory Psych: normal interaction with family and evaluation, no tangential or pressured speech, focused Skin: Positive: no rash, no ecchymosis Triage Information Reviewed: Yes Vital Signs On Initial Exam: Initial Vitals Temp Pulse Resp BP Pulse Ox 98.8 F 123 16 147/99 96 02/09/19 13:06 02/09/19 13:06 02/09/19 13:06 02/09/19 13:06 02/09/19 13:06 Diagnostics - Vital Signs Vital Signs Temp Pulse Resp BP Pulse Ox 02/09/19 13:06 98.8 F 123 16 147/99 96 - Laboratory Lab Results: Lab Results 02/09/19 02/09/19 02/09/19 Range/Units 14:06 14:09 14:09 WBC 10.2 (3.5-10.8) 10^3/uL RBC 5.68 H (4.18-5.48) 10^6 /uL Hgb 16.7 (14.0-18.0) g/dL Hct 49 (42-52) % MCV 86 (80-94) fL MCH 29 (27-31) pg MCHC 34 (31-36) g/dL RDW 13 (10-15) % Plt Count 241 (150-450) 10^3/uL MPV 8.3 (7.4-10.4) fL Neut % (Auto) 76.3 % Lymph % (Auto) 16.7 % [place] % (Auto) 5.5 % Eos % (Auto) 1.2 % Baso % (Auto) 0.3 % Absolute Neuts (auto) 7.8 H (1.5-7.7) 10^3/ul Absolute Lymphs (auto) 1.7 (1.0-4.8) 10^3/ul Absolute Monos (auto) 0.6 (0-0.8) 10^3/ul Absolute Eos (auto) 0.1 (0-0.6) 10^3/ul Absolute Basos (auto) 0.0 (0-0.2) 10^3/ul Absolute Nucleated RBC 0.0 10^3/ul Nucleated RBC % 0.1 Urine Color Michelle Urine Appearance Cloudy Urine pH 5.0 (5-9) Ur Specific [place] 1.030 (1.010-1.030) Urine Protein Negative (Negative) Urine Ketones Trace A (Negative) Urine Blood Negative (Negative) Urine Nitrate Negative (Negative) Urine Bilirubin Negative (Negative) Urine Urobilinogen Negative (Negative) Ur Leukocyte Esterase Negative (Negative) Urine Glucose Negative (Negative) Urine Ascorbic Acid * A (Negative) Urine Opiates Screen None detected (None Detect) Ur Barbiturates Screen None detected (None Detect) Ur Phencyclidine Scrn None detected (None Detect) Ur Amphetamines Screen None detected (None Detect) U Benzodiazepines Scrn None detected (None Detect) Urine Cocaine Screen None detected (None Detect) U Cannabinoids Screen None detected (None Detect) Result Diagrams: 02/09/19 14:06 02/09/19 14:06 Lab Statement: Any lab studies that have been ordered have been reviewed, and results considered in the medical decision making process. Course/Dx - Course Course Of Treatment: Pt with history of schizophrenia - his outpt meds being adjusted. Pt with increased hallucations and thorught of self harm. VSS. non concerning exam. pt approprate. will check labs including depakote leve. mental health eval. slight elevated BP - related to emergency condition - Differential Dx/Clinical Impression Provider Diagnosis: Psychosis - Physician Notifications Discussed Care Of Patient With: Chico Chatterjee Time Discussed With Above Provider: 18:35 Instructed by Provider To: Admit As Inpatient - Pt will be admitted voluntarily with a Dx of Psychosis. Discharge - Sign-Out/Discharge Documenting (check all that apply): Patient Departure - admitted voluntarily Patient Received Moderate/Deep Sedation with Procedure: No - Discharge Plan Condition: Stable Disposition: [place]CHIATRIC FAC[place] [place] - Billing Disposition and Condition Condition: STABLE Disposition: Psychiatric Facility [facility] [place] - Attestation Statements Document Initiated by Scribe: Yes Documenting Scribe: Bob Mendez Provider For Whom Kassiibe is Documenting (Include Credential): Aimee Delgado MD Scribe Attestation: Bob Piedra, scribed for Aimee Delgado MD on 02/12/19 at 1032. Scribe Documentation Reviewed: Yes Provider Attestation: The documentation as recorded by the Bob cortes accurately reflects the service I personally performed and the decisions made by nh, Aimee Delgado MD Status of Scribe Document: Viewed
[2019-02-09 14:52] LABS: Acetaminophen < 15 mcg/mL; Alcohol < 10 mg/dL (<10); Salicylate < 2.50 mg/dL (<30)
[2019-02-09 15:07] LABS: TSH (Thyroid Stimulating Horm) 2.09 mcIU/mL (0.34-5.60)
[2019-02-09] MEDS ORDERED: Nicotine* 2MG (FRUIT FLAVOR) GUM PO PRN (19:28)
[2019-02-09] MEDS ORDERED: Al Hydrox/Mg Hydrox/Simet LIQ* 30 ML UDC PO PRN (19:28)
[2019-02-09] MEDS ORDERED: Polyethylene Glycol 3350* 17 GM PACKET PO PRN (21:37)
[2019-02-09] MEDS: Divalproex ER TAB(*) 500 MG PO SCH (22:10)
[2019-02-09] MEDS: risperiDONE TAB* 2 MG PO SCH (22:10)
[2019-02-09] MEDS: Docusate CAP* 100 MG PO SCH (22:11)
[2019-02-09] MEDS: metFORMIN* 500 MG TAB PO SCH (22:12)
[2019-02-09] MEDS ORDERED: CloZAPine TAB* 25 MG TAB PO ONE ×2 (22:54→22:57)
[2019-02-10] MEDS: metFORMIN* 500 MG TAB PO SCH ×2 (08:36→21:06)
[2019-02-10] MEDS: Docusate CAP* 100 MG PO SCH ×2 (08:37→21:07)
[2019-02-10] MEDS: CloZAPine TAB* 25 MG TAB PO SCH ×2 (08:37→21:06)
[2019-02-10] MEDS: Vitamin THERAPEUTIC TAB PO SCH (08:37)
[2019-02-10] MEDS: risperiDONE TAB* 2 MG PO SCH ×2 (08:37→21:03)
[2019-02-10 11:59] LABS: Cholesterol 170 mg/dL; LDL Cholesterol 78 mg/dL; Triglycerides 252 mg/dL
--- NOTE | 2019-02-10 13:40 | HP ---
HISTORY AND PHYSICAL: DATE OF ADMISSION: 02/10/19 PROVIDER: Kacy Frausto NP in Psychiatry. SUPERVISING PHYSICIAN: Eliecer Laird MD * (DICTATED BY KACY FRAUSTO NP) JUSTIFICATION FOR ADMISSION: The patient is in need of 24 hour supervision and care secondary to disorganized thoughts and suicidal ideation. CHIEF COMPLAINT: "I want to titrate up as fast as possible." HISTORY OF PRESENT ILLNESS: The patient is a 23-year-old single white male with a history of schizophrenia treated by clozapine, who arrived brought in by private car and is here on voluntary status after becoming progressively more troubled by auditory and visual hallucinations and command hallucinations telling him to cut himself or split his own throat. Three weeks ago, in fact, he held a knife to his own throat because he felt as though he would never get well. Jay had been stable on 300 mg of clozapine daily. He is a senior at [employer]. He then got Lyme disease, he does not know where, but he states in a very concrete way that he got it from a tick. He could not take clozapine and ceftriaxone at the same time, so they stopped the clozapine and kept the ceftriaxone. Now that the ceftriaxone is completed, it is time to restart the clozapine. The process is slow when it is done as an outpatient setting, so he has come to the hospital for a variety of reasons including to titrate up the clozapine and to get rid of the auditory and visual hallucinations and command hallucinations that are telling him to harm himself. In the absence of clozapine, he was taking Risperdal 6 mg per day, 2 in the morning and 4 at bedtime. He would like his clozapine to be all at bedtime. With clozapine he is sleeping more. His interests are still low. He has low energy. Concentration appears to take him quite some time and he has psychomotor retardation. In addition, he has concrete thoughts and manner of expressing himself and has a slightly slurred speech. PAST PSYCHIATRIC HISTORY: He has been hospitalized twice at [facility] [place]. He was seen by [facility] in [place]. They see him once a week. He was admitted at [facility] in 2013 and 2017. His current stressors include racing thoughts, incomplete in one of his academic classes and general emotional lability. PAST MEDICAL HISTORY: He has had Lyme disease. He does have sleep apnea. I did call Dr. Emmanuel Clark in Infectious Disease regarding Lyme disease and his chronic stage where he is taking minocycline daily. Dr. Clark advises against this. I will discuss his continuing of minocycline 100 mg b.i.d. with him and perhaps his mother given this recommendation from Dr. Clark. MEDICATIONS: His previous psychiatric meds have included: 1. Abilify. 2. Zyprexa. 3. Prozac. 4. Lexapro. 5. Risperdal. TRAUMA HISTORY: He denies trauma. FORENSIC ISSUES: He does not have access to weapons. He has not been violent. FAMILY HISTORY: He says he does not know. He says may be someone has bipolar disorder. SUBSTANCE ABUSE: When he is not clozapine, he sometimes smokes cigarettes and drinks alcohol. When he is on clozapine he does not do those things. SOCIAL HISTORY: He was born in [place], [place]. He graduated high school in [place] and currently lives in [place] with his mom, step-dad and their 4- year-old son, Vivi. He is a senior at [employer]. He is not employed. He has not been in the . REVIEW OF SYSTEMS: The patient reports feeling fatigued. He denies shortness of breath, heat or cold intolerance, chest pain or abdominal pain. He denies neurological symptoms. He denies fevers or changes in weight. PHYSICAL EXAMINATION VITAL SIGNS: On 02/05/19 at 0921, temperature was 97.3, pulse 115, respirations 18, O2 sat on room air 98, blood pressure 133/83. Jay declined a physical exam citing lack of subjective need. An EKG was obtained, however. It was normal. LABORATORY DATA: Most are within normal limits. RBCs are high at 5.68, absolute neutrophils are high at 7.8. Glucose was high at 147. It was not clear whether this was a fasting blood glucose. Alkaline phosphatase was 116. Urine contained trace ketones and ascorbic acid. Valproic acid level was taken and it was 23. MENTAL STATUS EXAMINATION: Jay is a 5 feet 10 inches, 247 pounds man, who has dark hair that is pulled back into a wavy ponytail. His grooming is adequate. He sits quite still. He seems to be a little hypokinetic. His posture is good. His eye contact is good. He is calm and cooperative, although he has a concrete way of thinking and speaking. His speech is in normal rate, tone, and volume. He is dysthymic. His affect is constricted. Thought processes are normal. His thought content contains ideas of self-harm. He is not homicidal. He states he is not suicidal on the unit, although he does have suicidal thoughts. He is having auditory and visual hallucinations as well as command hallucinations. His insight is good. His judgment is poor. He is alert and oriented x4. DIAGNOSIS: Schizophrenia, rule out anxiety disorder. IMPRESSION: Jay is a 23-year-old man who comes to the hospital after finding that the auditory, visual, and command hallucinations he is experiencing are too overwhelming and he is concerned that he will act on suicidal plans and self -harm plans. PLAN: The patient is admitted to the adult behavioral health unit and placed on q.15 minute checks for his own safety. He is encouraged to participate in supportive milieu, individual, and group therapies. Estimated length of stay is 5 to 7 days. We will titrate clozapine as rapidly as possible to some efficacy. Our hope is to achieve a dose of 300 mg at bedtime by February 21, 2019. We will monitor for mood and thought content. Discharge planning will include family involvement and outpatient providers. KACY FRAUSTO, MEGHANN [id number]/[facility] #: [id number] JOIE
[2019-02-10] MEDS: Divalproex ER TAB(*) 500 MG PO SCH (21:06)
[2019-02-11] MEDS: CloZAPine TAB* 25 MG TAB PO SCH ×2 (09:01→20:54)
[2019-02-11] MEDS: risperiDONE TAB* 2 MG PO SCH ×2 (09:02→20:53)
[2019-02-11] MEDS: Docusate CAP* 100 MG PO SCH ×2 (09:02→20:54)
[2019-02-11] MEDS: metFORMIN* 500 MG TAB PO SCH ×2 (09:02→20:54)
[2019-02-11] MEDS: Vitamin THERAPEUTIC TAB PO SCH (09:02)
--- NOTE | 2019-02-11 11:51 | PN ---
BSU: Group Therapy Note - Service Type Service Type: 45890 Group Psychotherapy - Cognitive Behavioral Group Therapy ( CBT):Patient was attentive and participatory in CBT programming this morning, and remained in good behavioral control. Patient expressed positive insights regarding relevant treatment interventions and goals.
--- NOTE | 2019-02-11 14:45 | PN ---
Subjective - Subjective Date of Service: 02/11/19 Service Type: 52239 Hosp care 15 min low complexity Subjective: patient reports improved mood and decrease in AH/VH. He inquires about hold on minocycline; informed of infectious disease specialist recommendation. Patient reports being evaluated at [facility] for "advanced onset Lyme disease " and that minocycline is helpful for comorbid Lyme and schizophrenia. He states lethargy is primary symptom that is most troublesome. He reports usual caffeine intake of 2 cups coffee and occasional soda, as well. He reports agreement with continued hospitalization and advocates to be discharged "on Saturday, the soonest." He denies SI or passive wish. He reports recent episodes of holding a knife to his throat were motivated by delusion of surveillance and that action would stop people watching him. He identifies this was psychotic thinking and that risperidone was less effective than clozapine. Objective - General Observations Appearance: Disheveled Appears Stated Age: Yes Stature: Overweight Posture: WNL Eye Contact: Average Behavior/Activity: Slowed - Interaction Observations Attitude Towards Examiner: Cooperative Stated Mood: Euthymic Affect: Flat Speech Pattern/Tone: Clear, Appropriate, Normal Volume Thought Process: Coherent, Goal Directed Perception: WNL Thought Content: WNL Hallucination Type: Denies Delusion Type: Denies - Cognitive Function Orientation: A&O x 4 Level of Consciousness: Alert Cognition: WNL Estimated Intelligence: Normal Insight: WNL Judgment Within Normal Limits: Yes Ability to Make Reasonable Decisions: Mildly Impaired - Medication Compliance Cooperative with Inpatient Medication Regimen: Yes - Group Participation Participates in Group Activities: Partial Assessment - Assessment Merits Inpatient Hospitalization: For Immediate Safety, For Stabilization Plan - Plan Treatment Plan: Name: YG CRABTREE Birthdate: 1995 [id number] continue acute intensive psychiatric treatment. may decrease to q30min and allow staff pass per RN discretion. continue cross-titration from risperidone to clozapine. continue other medications, as ordered. may have caffeinated beverage with lunch. discharge planning to include mother and [facility]. Continued Medication Management: Start Medication Medications: Current Medications Acetaminophen (Tylenol Tab*) 650 mg PO Q4H PRN PRN Reason: PAIN or TEMP > 101 F Al Hydrox/Mg Hydrox/Simethicone (Maalox Plus*) 30 ml PO Q4H PRN PRN Reason: INDIGESTION Clozapine (Clozapine Tab*) 25 mg PO BID [facility] ALFREDO Stop: 02/12/19 12:00 Last Admin: 02/11/19 09:01 Dose: 25 mg Clozapine (Clozapine Tab*) 50 mg PO BID [facility] Stop: 02/15/19 10:00 Clozapine (Clozapine Tab*) 75 mg PO BID [facility] Stop: 02/17/19 07:00 Clozapine (Clozapine Tab*) 100 mg PO BID [facility] Divalproex Sodium (Depakote Er Tab(*)) 500 mg PO BEDTIME [facility] Last Admin: 02/10/19 21:06 Dose: 500 mg Docusate Sodium (Colace Cap*) 100 mg PO BID [facility] Last Admin: 02/11/19 09:02 Dose: 100 mg Metformin HCl (Glucophage*) 500 mg PO BID [facility] Last Admin: 02/11/19 09:02 Dose: 500 mg Multivitamins (Theragran Tab*) 1 tab PO DAILY [facility] Last Admin: 02/11/19 09:02 Dose: 1 tab Nicotine Polacrilex (Nicotine Gum*) 2 mg PO Q2H PRN PRN Reason: CRAVINGS Polyethylene Glycol/Electrolytes (Miralax*) 17 gm PO DAILY PRN PRN Reason: CONSTIPATION Risperidone (Risperdal*) 2 mg PO QAM [facility] Stop: 02/12/19 07:00 Last Admin: 02/11/19 09:02 Dose: 2 mg Risperidone (Risperdal*) 4 mg PO 2100 [facility] Stop: 02/15/19 07:00 Last Admin: 02/10/19 21:03 Dose: 4 mg Risperidone (Risperdal*) 2 mg PO BEDTIME [facility] Stop: 02/17/19 10:00 Risperidone (Risperdal*) 1 mg PO BEDTIME [facility] Stop: 02/19/19 07:00 - Discharge Plan Discharge Plan: Inpatient Hospitalization Outpatient Program: [facility], [place]
--- NOTE | 2019-02-11 16:01 | PN ---
BSU: Group Therapy Note - Service Type Service Type: [id number] Group Psychotherapy - Medication Education Group: Patient attended group and presented with flat affect that did not vary with discussion. Although responsive to direct prompts to respond to questions, patient did not engage in spontaneous conversation.
[2019-02-11] MEDS: Divalproex ER TAB(*) 500 MG PO SCH (20:54)
[2019-02-12] MEDS: Vitamin THERAPEUTIC TAB PO SCH (09:08)
[2019-02-12] MEDS: Docusate CAP* 100 MG PO SCH ×2 (09:08→21:13)
[2019-02-12] MEDS: CloZAPine TAB* 25 MG TAB PO SCH ×2 (09:08→21:11)
[2019-02-12] MEDS: metFORMIN* 500 MG TAB PO SCH ×2 (09:08→21:12)
--- NOTE | 2019-02-12 11:33 | PN ---
BSU: Group Therapy Note - Service Type Service Type: [id number] Group Psychotherapy - Cognitive Behavioral Group Therapy ( CBT):Patient was attentive and participatory in CBT programming this morning, and remained in good behavioral control. Patient expressed positive insights regarding relevant treatment interventions and goals.
[2019-02-12] MEDS: MINOCYCLINE 50 MG PO SCH ×2 (14:10→21:12)
--- NOTE | 2019-02-12 21:05 | PN ---
Subjective - Subjective Date of Service: 02/12/19 Service Type: [id number] Hosp care 15 min low complexity Subjective: Jay is doing very well. He is feeling better and appears better, as well. I presented him with the titration schedule (clozapine increasing and risperidone decreasing) created for him along with options for ways he could best manage the rapidly changing doses. I will give him a spreadsheet with the schedule. Objective - General Observations Appearance: Disheveled Appears Stated Age: Yes Stature: WNL Posture: Slumped Eye Contact: Intermittent Behavior/Activity: WNL - Interaction Observations Attitude Towards Examiner: Cooperative Stated Mood: Euthymic Affect: Blunted Speech Pattern/Tone: Clear, Slurred Thought Process: Coherent Perception: WNL Thought Content: WNL Hallucination Type: Denies Delusion Type: Denies - Cognitive Function Orientation: A&O x 4 Level of Consciousness: Awake, Alert, Appropriate Cognition: WNL Estimated Intelligence: Normal Insight: WNL Judgment Within Normal Limits: Yes - Medication Compliance Cooperative with Inpatient Medication Regimen: Yes - Group Participation Participates in Group Activities: Partial Assessment - Assessment Merits Inpatient Hospitalization: For Immediate Safety, For Discharge Planning Inpatient DSM-V Dx: F20.9 Clinical Impression: Jay is a 23-year-old white male with a history of schizophrenia who came to the hospital following discontinuation of clozapine due to an interaction with an antibiotic used for Lyme disease and resulting psychotic symptoms including commands hallucinations to harm/kill himself. Plan - Plan Treatment Plan: Name: JAY CRABTREE Birthdate: 1995 [id number] continue acute intensive psychiatric treatment. may decrease to q30min and allow staff pass per RN discretion. continue cross-titration from risperidone to clozapine. continue other medications, as ordered. may have caffeinated beverage with lunch. discharge planning to include mother and On Track. 02/12/19 Continue with prior plan continue titration Continued Medication Management: Different Medication Medications: Current Medications Acetaminophen (Tylenol Tab*) 650 mg PO Q4H PRN PRN Reason: PAIN or TEMP > 101 F Al Hydrox/Mg Hydrox/Simethicone (Maalox Plus*) 30 ml PO Q4H PRN PRN Reason: INDIGESTION Clozapine (Clozapine Tab*) 50 mg PO BID [facility] Stop: 02/15/19 10:00 Clozapine (Clozapine Tab*) 75 mg PO BID [facility] Stop: 02/17/19 07:00 Clozapine (Clozapine Tab*) 100 mg PO BID [facility] Divalproex Sodium (Depakote Er Tab(*)) 500 mg PO BEDTIME [facility] Last Admin: 02/11/19 20:54 Dose: 500 mg Docusate Sodium (Colace Cap*) 100 mg PO BID [facility] Last Admin: 02/12/19 09:08 Dose: 100 mg Metformin HCl (Glucophage*) 500 mg PO BID [facility] Last Admin: 02/12/19 09:08 Dose: 500 mg Minocycline HCl (Minocycline (Nf)) 100 mg PO BID [facility] Last Admin: 02/12/19 14:10 Dose: 100 mg Multivitamins (Theragran Tab*) 1 tab PO DAILY [facility] Last Admin: 02/12/19 09:08 Dose: 1 tab Nicotine Polacrilex (Nicotine Gum*) 2 mg PO Q2H PRN PRN Reason: CRAVINGS Polyethylene Glycol/Electrolytes (Miralax*) 17 gm PO DAILY PRN PRN Reason: CONSTIPATION Risperidone (Risperdal*) 4 mg PO 2100 [facility] Stop: 02/15/19 07:00 Last Admin: 02/11/19 20:53 Dose: 4 mg Risperidone (Risperdal*) 2 mg PO BEDTIME [facility] Stop: 02/17/19 10:00 Risperidone (Risperdal*) 1 mg PO BEDTIME [facility] Stop: 02/19/19 07:00 - Discharge Plan Discharge Plan: Outpatient Follow Up Outpatient Program: [facility]
[2019-02-12] MEDS: risperiDONE TAB* 2 MG PO SCH (21:12)
[2019-02-12] MEDS: Divalproex ER TAB(*) 500 MG PO SCH (21:13)
[2019-02-13] MEDS: CloZAPine TAB* 25 MG TAB PO SCH ×2 (08:57→21:12)
[2019-02-13] MEDS: Docusate CAP* 100 MG PO SCH ×2 (08:58→21:11)
[2019-02-13] MEDS: metFORMIN* 500 MG TAB PO SCH ×2 (08:58→21:12)
[2019-02-13] MEDS: MINOCYCLINE 50 MG PO SCH ×2 (08:58→21:09)
[2019-02-13] MEDS: Vitamin THERAPEUTIC TAB PO SCH (08:58)
[2019-02-13] MEDS: Divalproex ER TAB(*) 500 MG PO SCH (21:11)
[2019-02-13] MEDS: risperiDONE TAB* 2 MG PO SCH (21:14)
[2019-02-14] MEDS: Docusate CAP* 100 MG PO SCH ×2 (08:42→21:16)
[2019-02-14] MEDS: Vitamin THERAPEUTIC TAB PO SCH (08:42)
[2019-02-14] MEDS: CloZAPine TAB* 25 MG TAB PO SCH ×2 (08:42→21:14)
[2019-02-14] MEDS: metFORMIN* 500 MG TAB PO SCH ×2 (08:42→21:16)
[2019-02-14] MEDS: MINOCYCLINE 50 MG PO SCH ×2 (08:42→21:15)
--- NOTE | 2019-02-14 11:02 | PN ---
Subjective - Subjective Date of Service: 02/13/19 Service Type: 54288 Hosp care 15 min low complexity Subjective: Jay is doing well. He has improved in mood and affect as well as his ability to interact effectively with others. He would miguel to be discharged today, but his titration would benefit from additional days as well as meeting up with [facility] has to wait until Saturday. Objective - General Observations Appearance: Disheveled Appears Stated Age: Yes Stature: Overweight Posture: WNL Eye Contact: Average Behavior/Activity: WNL - Interaction Observations Attitude Towards Examiner: Cooperative Stated Mood: Anxious Affect: Blunted Speech Pattern/Tone: Clear Thought Process: Coherent Perception: WNL Thought Content: WNL Hallucination Type: None Delusion Type: None - Cognitive Function Orientation: A&O x 4 Level of Consciousness: Awake, Alert, Appropriate Cognition: WNL Estimated Intelligence: Normal Insight: WNL Judgment Within Normal Limits: Yes - Medication Compliance Cooperative with Inpatient Medication Regimen: Yes - Group Participation Participates in Group Activities: Partial Assessment - Assessment Merits Inpatient Hospitalization: For Immediate Safety, For Discharge Planning Inpatient DSM-V Dx: F20.9 Clinical Impression: Jay is a 23-year-old white male with a history of schizophrenia who came to the hospital following discontinuation of clozapine due to an interaction with an antibiotic used for Lyme disease and resulting psychotic symptoms including commands hallucinations to harm/kill himself. Plan - Plan Treatment Plan: Name: JAY CRABTREE Birthdate: 1995 [id number] continue acute intensive psychiatric treatment. may decrease to q30min and allow staff pass per RN discretion. continue cross-titration from risperidone to clozapine. continue other medications, as ordered. may have caffeinated beverage with lunch. discharge planning to include mother and On Track. 02/12/19 Continue with prior plan continue titration 02/13/19 Continue with previously scheduled titration Contact with [facility] established Continued Medication Management: Continue Outpt Medication Medications: Current Medications Acetaminophen (Tylenol Tab*) 650 mg PO Q4H PRN PRN Reason: PAIN or TEMP > 101 F Al Hydrox/Mg Hydrox/Simethicone (Maalox Plus*) 30 ml PO Q4H PRN PRN Reason: INDIGESTION Clozapine (Clozapine Tab*) 50 mg PO BID [facility] Stop: 02/15/19 10:00 Last Admin: 02/14/19 08:42 Dose: 50 mg Clozapine (Clozapine Tab*) 75 mg PO BID [facility] Stop: 02/17/19 07:00 Clozapine (Clozapine Tab*) 100 mg PO BID [facility] Divalproex Sodium (Depakote Er Tab(*)) 500 mg PO BEDTIME [facility] Last Admin: 02/13/19 21:11 Dose: 500 mg Docusate Sodium (Colace Cap*) 100 mg PO BID [facility] Last Admin: 02/14/19 08:42 Dose: 100 mg Metformin HCl (Glucophage*) 500 mg PO BID [facility] Last Admin: 02/14/19 08:42 Dose: 500 mg Minocycline HCl (Minocycline (Nf)) 100 mg PO BID [facility] Last Admin: 02/14/19 08:42 Dose: 100 mg Multivitamins (Theragran Tab*) 1 tab PO DAILY [facility] Last Admin: 02/14/19 08:42 Dose: 1 tab Nicotine Polacrilex (Nicotine Gum*) 2 mg PO Q2H PRN PRN Reason: CRAVINGS Polyethylene Glycol/Electrolytes (Miralax*) 17 gm PO DAILY PRN PRN Reason: CONSTIPATION Risperidone (Risperdal*) 4 mg PO 2100 [facility] Stop: 02/15/19 07:00 Last Admin: 02/13/19 21:14 Dose: 4 mg Risperidone (Risperdal*) 2 mg PO BEDTIME [facility] Stop: 02/17/19 10:00 Risperidone (Risperdal*) 1 mg PO BEDTIME [facility] Stop: 02/19/19 07:00
[2019-02-14] MEDS: Acetaminophen TAB* 325 MG PO PRN (15:12)
[2019-02-14] MEDS: Divalproex ER TAB(*) 500 MG PO SCH (21:15)
[2019-02-14] MEDS: risperiDONE TAB* 2 MG PO SCH (21:17)
[2019-02-15] MEDS: Vitamin THERAPEUTIC TAB PO SCH (09:23)
[2019-02-15] MEDS: Docusate CAP* 100 MG PO SCH ×2 (09:23→21:08)
[2019-02-15] MEDS: MINOCYCLINE 50 MG PO SCH ×2 (09:23→21:08)
[2019-02-15] MEDS: metFORMIN* 500 MG TAB PO SCH ×2 (09:23→21:07)
[2019-02-15] MEDS: CloZAPine TAB* 25 MG TAB PO SCH ×2 (09:24→21:09)
[2019-02-15] MEDS: Acetaminophen TAB* 325 MG PO PRN (14:34)
--- NOTE | 2019-02-15 18:54 | PN ---
Subjective - Subjective Date of Service: 02/15/19 Service Type: 36531 Hosp care 25 min moderate complexity Subjective: Jay appears to have improved significantly since his admission. Still hears some non-intimidating voices. No delusions, SI or HI. Objective - General Observations Appearance: Neat Appears Stated Age: Yes Stature: WNL Posture: WNL Eye Contact: Average Behavior/Activity: WNL - Interaction Observations Attitude Towards Examiner: Cooperative Stated Mood: Euthymic Affect: Full Speech Pattern/Tone: Clear, Appropriate, Normal Volume Thought Process: Coherent, Goal Directed Perception: WNL Thought Content: WNL Hallucination Type: Auditory Delusion Type: Denies - Cognitive Function Orientation: A&O x 4 Level of Consciousness: Awake, Alert, Appropriate Cognition: WNL Estimated Intelligence: Normal Insight: WNL Judgment Within Normal Limits: Yes - Medication Compliance Cooperative with Inpatient Medication Regimen: Yes - Group Participation Participates in Group Activities: Yes Assessment - Assessment Merits Inpatient Hospitalization: Consolidate Improvements, Pending Safe DC Plan Inpatient DSM-V Dx: F20.9 Clinical Impression: Jay is a 23-year-old white male with a history of schizophrenia who came to the hospital following discontinuation of clozapine due to an interaction with an antibiotic used for Lyme disease and resulting psychotic symptoms including commands hallucinations to harm/kill himself. Plan - Plan Treatment Plan: Name: JAY CRABTREE Birthdate: 1995 [id number] continue acute intensive psychiatric treatment. may decrease to q30min and allow staff pass per RN discretion. continue cross-titration from risperidone to clozapine. continue other medications, as ordered. may have caffeinated beverage with lunch. discharge planning to include mother and On Track. 02/12/19 Continue with prior plan continue titration 02/13/19 Continue with previously scheduled titration Contact with [facility] established Continued Medication Management: Continue Outpt Medication Medications: Current Medications Acetaminophen (Tylenol Tab*) 650 mg PO Q4H PRN PRN Reason: PAIN or TEMP > 101 F Last Admin: 02/15/19 14:34 Dose: 650 mg Al Hydrox/Mg Hydrox/Simethicone (Maalox Plus*) 30 ml PO Q4H PRN PRN Reason: INDIGESTION Clozapine (Clozapine Tab*) 75 mg PO BID [facility] Stop: 02/17/19 07:00 Clozapine (Clozapine Tab*) 100 mg PO BID [facility] Divalproex Sodium (Depakote Er Tab(*)) 500 mg PO BEDTIME [facility] Last Admin: 02/14/19 21:15 Dose: 500 mg Docusate Sodium (Colace Cap*) 100 mg PO BID [facility] Last Admin: 02/15/19 09:23 Dose: 100 mg Metformin HCl (Glucophage*) 500 mg PO BID [facility] Last Admin: 02/15/19 09:23 Dose: 500 mg Minocycline HCl (Minocycline (Nf)) 100 mg PO BID [facility] Last Admin: 02/15/19 09:23 Dose: 100 mg Multivitamins (Theragran Tab*) 1 tab PO DAILY [facility] Last Admin: 02/15/19 09:23 Dose: 1 tab Nicotine Polacrilex (Nicotine Gum*) 2 mg PO Q2H PRN PRN Reason: CRAVINGS Polyethylene Glycol/Electrolytes (Miralax*) 17 gm PO DAILY PRN PRN Reason: CONSTIPATION Risperidone (Risperdal*) 2 mg PO BEDTIME [facility] Stop: 02/17/19 10:00 Risperidone (Risperdal*) 1 mg PO BEDTIME [facility] Stop: 02/19/19 07:00 - Discharge Plan Discharge Plan: [facility]
[2019-02-15] MEDS: risperiDONE TAB* 2 MG PO SCH (21:07)
[2019-02-15] MEDS: Divalproex ER TAB(*) 500 MG PO SCH (21:08)
[2019-02-16] MEDS: CloZAPine TAB* 25 MG TAB PO SCH (10:04)
[2019-02-16] MEDS: Docusate CAP* 100 MG PO SCH ×2 (10:04→21:02)
[2019-02-16] MEDS: metFORMIN* 500 MG TAB PO SCH ×2 (10:04→21:02)
[2019-02-16] MEDS: Vitamin THERAPEUTIC TAB PO SCH (10:04)
[2019-02-16] MEDS: MINOCYCLINE 50 MG PO SCH ×2 (10:04→21:03)
[2019-02-16 10:46] LABS: ABS Basophils 0.1 10^3/ul (0-0.2); ABS Eosinophils 0.4 10^3/ul (0-0.6); ABS Lymphocytes 2.4 10^3/ul (1.0-4.8); ABS Monocytes 0.7 10^3/ul (0-0.8); ABS Neutrophils 7.3 10^3/ul (1.5-7.7); Eosinophil % 3.7 %; Hematocrit 46 % (42-52); Hemoglobin 16.1 g/dL (14.0-18.0); Lymphocyte % 22.2 %; Mean Corpuscular HGB Conc 35 g/dL (31-36); Mean Corpuscular Hemoglobin 30 pg (27-31); Mean Corpuscular Volume 86 fL (80-94); Mean Platelet Volume 8.4 fL (7.4-10.4); Platelet Count 240 10^3/uL (150-450); Red Blood Count 5.41 10^6 /uL (4.18-5.48); Red Cell Distribution Width 13 % (10-15); White Blood Count 10.9 10^3/uL (3.5-10.8)
--- NOTE | 2019-02-16 11:44 | PN ---
BSU: Group Therapy Note - Service Type Service Type: [id number] Group Psychotherapy - Cognitive Behavioral Group Therapy ( CBT):Patient was attentive and participatory in CBT programming this morning, and remained in good behavioral control. Patient expressed positive insights regarding relevant treatment interventions and goals.
[2019-02-16] MEDS: Acetaminophen TAB* 325 MG PO PRN (14:23)
--- NOTE | 2019-02-16 18:27 | PN ---
Subjective - Subjective Date of Service: 02/16/19 Service Type: [id number] Hosp care 15 min low complexity Subjective: Jay states he is doing very well. He says he does still have hallucinations, but he is ignoring them and they are therefore manageable. This is contradictory to the notes left by nursing. Nursing stated Jay was bewildered and frightened by his hallucinations. Therefore, we kept him another day and continued the increase in clozapine. Objective - General Observations Appearance: Disheveled Appears Stated Age: Yes Stature: Overweight Posture: WNL Eye Contact: Average Behavior/Activity: WNL - Interaction Observations Attitude Towards Examiner: Cooperative Stated Mood: Dysphoric Affect: Blunted Speech Pattern/Tone: Clear Thought Process: Coherent Perception: WNL Thought Content: WNL Hallucination Type: Auditory Delusion Type: Denies - Cognitive Function Orientation: A&O x 4 Level of Consciousness: Awake, Alert, Appropriate Cognition: WNL Estimated Intelligence: Normal Insight: WNL Judgment Within Normal Limits: Yes - Medication Compliance Cooperative with Inpatient Medication Regimen: Yes - Group Participation Participates in Group Activities: Yes Assessment - Assessment Merits Inpatient Hospitalization: For Immediate Safety, For Discharge Planning Inpatient DSM-V Dx: F20.9 Clinical Impression: Jay is a 23-year-old white male with a history of schizophrenia who came to the hospital following discontinuation of clozapine due to an interaction with an antibiotic used for Lyme disease and resulting psychotic symptoms including commands hallucinations to harm/kill himself. Plan - Plan Treatment Plan: Name: JAY CRABTREE Birthdate: 1995 [id number] continue acute intensive psychiatric treatment. may decrease to q30min and allow staff pass per RN discretion. continue cross-titration from risperidone to clozapine. continue other medications, as ordered. may have caffeinated beverage with lunch. discharge planning to include mother and On Track. 02/12/19 Continue with prior plan continue titration 02/13/19 Continue with previously scheduled titration Contact with [facility] established Continued Medication Management: Continue Outpt Medication Medications: Current Medications Acetaminophen (Tylenol Tab*) 650 mg PO Q4H PRN PRN Reason: PAIN or TEMP > 101 F Last Admin: 02/16/19 14:23 Dose: 650 mg Al Hydrox/Mg Hydrox/Simethicone (Maalox Plus*) 30 ml PO Q4H PRN PRN Reason: INDIGESTION Clozapine (Clozapine Tab*) 100 mg PO BID [facility] Clozapine (Clozapine Tab*) 100 mg PO ONCE ONE Stop: 02/16/19 21:01 Divalproex Sodium (Depakote Er Tab(*)) 500 mg PO BEDTIME [facility] Last Admin: 02/15/19 21:08 Dose: 500 mg Docusate Sodium (Colace Cap*) 100 mg PO BID [facility] Last Admin: 02/16/19 10:04 Dose: 100 mg Metformin HCl (Glucophage*) 500 mg PO BID [facility] Last Admin: 02/16/19 10:04 Dose: 500 mg Minocycline HCl (Minocycline (Nf)) 100 mg PO BID [facility] Last Admin: 02/16/19 10:04 Dose: 100 mg Multivitamins (Theragran Tab*) 1 tab PO DAILY [facility] Last Admin: 02/16/19 10:04 Dose: 1 tab Nicotine Polacrilex (Nicotine Gum*) 2 mg PO Q2H PRN PRN Reason: CRAVINGS Polyethylene Glycol/Electrolytes (Miralax*) 17 gm PO DAILY PRN PRN Reason: CONSTIPATION Risperidone (Risperdal*) 2 mg PO BEDTIME [facility] Stop: 02/17/19 10:00 Last Admin: 02/15/19 21:07 Dose: 2 mg Risperidone (Risperdal*) 1 mg PO BEDTIME [facility] Stop: 02/19/19 07:00
[2019-02-16] MEDS ORDERED: CloZAPine TAB* 100 MG TAB PO ONE (21:00)
[2019-02-16] MEDS: risperiDONE TAB* 2 MG PO SCH (21:02)
[2019-02-16] MEDS: Divalproex ER TAB(*) 500 MG PO SCH (21:02)
[2019-02-17] MEDS: Docusate CAP* 100 MG PO SCH (08:12)
[2019-02-17] MEDS: Vitamin THERAPEUTIC TAB PO SCH (08:12)
[2019-02-17] MEDS: metFORMIN* 500 MG TAB PO SCH (08:12)
[2019-02-17] MEDS: MINOCYCLINE 50 MG PO SCH (08:13)
[2019-02-17 08:49] VITALS: BP 133/64
[2019-02-17] MEDS ORDERED: CloZAPine TAB* 100 MG TAB PO SCH (09:00)
[2019-02-17] MEDS ORDERED: risperiDONE TAB* 1 MG PO SCH (21:00)
--- NOTE | 2019-02-18 15:31 | DS ---
DISCHARGE SUMMARY: DATE OF ADMISSION: 02/10/19 DATE OF DISCHARGE: 02/17/19 PROVIDER: Kacy Frausto NP, in Psychiatry. SUPERVISING PHYSICIAN: Dr. Eliecer Laird. DIAGNOSIS: Schizoaffective disorder. CONDITION AT THE TIME OF DISCHARGE: Improved, psychiatrically cleared, stable. Jay participated in some groups and was social with select peers. His mother is agreeable to his discharge as is Jay. He has done well here psychiatrically. He tolerated the shift from Risperdal to clozapine very wel l. He is going to follow up with [facility] in [place]. MENTAL STATUS EXAMINATION: At the time of discharge, Jay is calm, cooperative, makes good eye cont act. He is alert and oriented x4. His grooming is adequate. His speech pace is normal. His thought processes are logical. He is not psychotic or delusional. He denies AH, VH, SI, and HI, although t here may be lingering auditory hallucinations, they are not troublesome. His insight and judgment ar e good. He is willing to follow up and is urged to see a therapist. DISCHARGE INSTRUCTIONS: A. Medications: He is discharged on: 1. Clozapine 100 mg twice a day, dispensed 20 tablets for him. 2. Depakote ER 500 mg daily. 3. Colace 100 mg twice a day. 4. Metformin 500 mg twice a day. 5. Minocycline 100 mg twice a day. 6. MiraLAX 17 g daily. 7. Therapeutic vitamin 1 tablet daily. B. Diet is regular. C. Activities are as tolerated. He is a smoker, but did not require nicotine replacement while on t unit. There are no studies pending at the time of discharge. D. Followup care: He has an appointment with [facility] on 02/23/19 at 9:30 with Yaneli Beard so to get his next week's worth of medications. He also knew to get his blood drawn no later than , that Saturday. He is encouraged to meet with a counselor, the soonest his personal counselor Concepcion betancur is available is on 03/05/19 at 9:30. He is welcome to meet with another counselor. E. Disposition: Jay is being discharged to his home. F. Substance abuse followup is not indicated. HOSPITAL COURSE: Part A: DICTATION ENDS ABRUPTLY KACY FRAUSTO, [employer] [id number]/[facility] #: [id number]
--- NOTE | 2019-02-18 17:43 | DS ---
CC: Dr. Staples; [facility], Yaneli Garg and Yasmin DISCHARGE SUMMARY: ADDENDUM: HOSPITAL COURSE: Part A: Chief Complaint: "I want to titrate up as fast as possible." The patient is a 23-year-old single white male with a history of schizophrenia, treated by clozapine, who arrived brought in by private care and is here on a voluntary status after becoming progressivel y more troubled by auditory and visual hallucinations and command hallucinations telling him to cut h imself or slit his own throat. Three weeks ago, in fact, he held a knife to his own throat because angela e felt as though he would never get well. Jay has been stable on 300 mg of clozapine daily. He is a senior at [employer]. He then got L yme disease; he does not know where, but he states in a very concrete way that he got it from a tick. He could not take clozapine and ceftriaxone at the same time, so they stopped the clozapine and he kept the ceftriaxone. Now that the ceftriaxone is completed, it is time to restart the clozapine. T he process is slow when it is done in an outpatient setting, so he has come to the hospital for a gurmeet iety of reasons including to titrate up to clozapine and to get rid of the auditory, visual hallucina tions and command hallucinations that are telling him to harm himself. In the absence of the clozapine, he was taking Risperdal 6 mg per day, 2 in the morning and 4 at bedt vick. He would like his clozapine to be all at bedtime. With clozapine, he is sleeping more. His interests are still low. He has low energy. Concentration appears to take him quite some time and he has psychomotor retardation. In addition, he has concret e thoughts and manner of expressing himself and has a slightly slurred speech. Part B: Psychiatric treatment was rendered. Jay was admitted to the adult behavioral unit and maureen maria m on q.15-minute checks for his safety. Jay did progressively better on the unit. As time went on, he went to some groups and interacted with select peers very well. He tolerated the cross titrat ion of Risperdal and clozapine to clozapine only. Clozapine was titrated from 25 b.i.d. when he arri elizabeth up to upon discharge 100 mg b.i.d. He then at the same time as increasing the clozapine was decr easing the Risperdal so that at discharge he was taking only 1 mg of Risperdal. In the next few days , he will stop taking Risperdal entirely and on 03/01/19 he will be on 300 mg of clozapine at bedtime and no Risperdal. I did not meet with his mother, but his mother was very involved with his care. She was pleased with his progress and believes he is much closer to his baseline than he was when he arrived. At the beginning of his arrival, he was concrete in thought. His speech was slow and mechanical. He at this time, with clozapine increasing in dosage, is improving significantly. He feels more like h is usual self. 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 He i s future oriented. He is eager to return home. He is also eager to followup with [facility] yruse office as these people have been instrumental in getting him to the success that brought him to graduate from [employer] and to do very well on his LSAT exam. GIULIANO LAUREN NP [id number]/[facility] #: [id number]
== END 2019-02-17 11:53 | disposition home or self-care (01) | DRG 885 ==
LOC: ED 12:59 → BSU 02-10 08:17
PROVIDERS: ADMIT Psychiatry & Neurology Psychiatry; ATTEND Psychiatry & Neurology Psychiatry
DX: F20.9 Schizophrenia, unspecified (principal); R45.851 Suicidal ideations; A69.20 Lyme disease, unspecified; G47.30 Sleep apnea, unspecified; Z79.899 Other long term (current) drug therapy
CPT/HCPCS: 36415; 80053; 80061; 80164; 80307; 80320; 80329; 81003; 83036; 84443; 85025; 90853; 93005; 99222; 99231; 99232; 99238; 99284; A9270-GY; G0480

== ENCOUNTER 2019-02-20 14:31 | Emergency (ER) | payer OTHER ==
[2019-02-20 14:53] VITALS: BP 131/85
--- NOTE | 2019-02-20 16:06 | UC ---
Cardiac HPI - HPI Summary HPI Summary: 2 WEEKS AGO PATIENT SPENT A WEEK IN HOUSE ON THE MENTAL HEALTH [facility] FOR SCHIZOPHRENIA. WAS STARTED ON CLOZAPINE 12.5 MG TWICE DAILY. FOR THE PAST 1 WEEK HE HAS BEEN ON A RAPID TITRATION SCHEDULE OF THIS MEDICATION AND IS CURRENTLY TAKING 100 MG IN THE MORNING AND 150 MG AT NIGHT. THE MEDICINE MAKES HIM FEEL SLIGHTLY SEDATED BUT OTHERWISE HE FEELS IT IS DOING WELL FOR HIS SCHIZOPHRENIA. LAST NIGHT WHILE WATCHING THE FIREWORKS HE EXPERIENCED AN EPISODE OF CHEST TIGHTNESS FOR ABOUT 5 SECONDS. NO SHORTNESS OF BREATH, DIZZINESS, NAUSEA, ARM PAIN, SWEATS. SPOKE TO HIS MENTAL HEALTH PROVIDER TODAY WHO RECOMMENDED HE BE EVALUATED FOR MYOCARDITIS GIVEN HIS RECENT INITIATION OF CLOZAPINE THIS IS A KNOWN POSSIBLE CONDITION RELATED TO THIS MEDICATION. HE IS CURRENTLY ASYMPTOMATIC BUT IN THE UC WAS FOUND TO BE TACHYCARDIC. - History of Current Complaint Chief Complaint: UCChestPain Stated Complaint: CHEST COMPLAINT Time Seen by Provider: 02/20/19 14:58 Hx Obtained From: Patient Onset/Duration: Sudden Onset, Resolved Initial Severity: Moderate Current Severity: None Pain Intensity: 0 Chest Pain Location: Mid Sternal Character: Tightness Aggravating Factor(s): Nothing Alleviating Factor(s): Spontaneous Resolution Associated Signs & Symptoms: Positive: Chest Pain. Negative: Headaches, SOB, Nausea/Vomiting, Cough - Allergy/Home Medications Allergies/Adverse Reactions: Allergies Allergy/AdvReac Type Severity Reaction Status Date / Time bupropion [From Wellbutrin] Allergy Itching Verified 02/20/19 14:53 Home Medications: Home Medications Cholecalciferol TAB* [Vitamin D TAB*] 1,000 unit PO DAILY 02/20/19 [History Confirmed 02/20/19] CloZAPine TAB* 100 - 150 mg PO BID 02/20/19 [History Confirmed 02/20/19] Docusate CAP* [Colace Cap*] 100 mg PO DAILY 02/20/19 [History Confirmed 02/20/19 ] PMH/Surg Hx/FS Hx/Imm Hx - Additional Past Medical History Additional PMH: SLEEP APNEA Psychological History: Schizophrenia - Surgical History Surgical History: None - Family History Known Family History: Positive: Other - epilepsy, Non-Contributory - Social History Alcohol Use: Rare Substance Use Type: None Smoking Status (MU): Light Every Day Tobacco Smoker Amount Used/How Often: Pt has not smoked in last 30 days or used any tobacoo products. When Did the Patient Quit Smoking/Using Tobacco: quit 10 days ago - Immunization History Most Recent Influenza Vaccination: fall 2012 Most Recent Tetanus Shot: unk Most Recent Pneumonia Vaccination: unk Review of Systems All Other Systems Reviewed And Are Negative: Yes Constitutional: Positive: Negative Cardiovascular: Positive: Chest Pain Gastrointestinal: Positive: Negative Neurological: Positive: Negative Physical Exam Triage Information Reviewed: Yes Appearance: Well-Appearing, No Pain Distress, Well-Nourished Vital Signs: Initial Vital Signs Temp 98.8 F 02/20/19 14:44 Pulse 128 02/20/19 14:44 Resp 20 02/20/19 14:44 BP 131/85 02/20/19 14:44 Pulse Ox 98 02/20/19 14:44 Vital Signs Reviewed: Yes Eyes: Positive: Conjunctiva Clear ENT: Positive: Hearing grossly normal Neck: Positive: Supple, Nontender, No Lymphadenopathy Respiratory Exam: Normal Cardiovascular: Positive: Tachycardia Abdomen Description: Positive: Soft Musculoskeletal: Positive: No Edema Neurological: Positive: Alert Psychological: Positive: Normal Response To Family, Age Appropriate Behavior Skin: Negative: Rashes Diagnostics - EKG Cardiac Rate: Tachycardia - 111BPM Cardiac Rhythm: Sinus: Normal Ectopy: None ST Segment: Normal - Assessment/Plan Course Of Treatment: PATIENT WITH AN ACUTE EPISODE OF CHEST TIGHTNESS LAST NIGHT AND TACHYCARDIA IN THE SETTING OF RAPID TITRATION UP ON CLOZAPINE. AGREE WITH PATIENT'S MENTAL HEALTH PROVIDER THAT EVALUATION FOR MYOCARDITIS OR OTHER UNDERLYING CARDIAC ABNORMALITY IS WARRANTED. HE [place] GO [place] [facility] [place]. PT OFFERED TRANSPORT TO THE ER BY AMBULANCE BUT DECLINES. ADVISED THAT BY NOT TRAVELING IN A MONITORED SETTING HE COULD BE RISKING WORSENING OF HIS CONDITION THAT COULD POSE A THREAT TO HIS LIFE, HEALTH AND MEDICAL SAFETY. HE VERBALIZES UNDERSTANDING AND CONTINUES TO DECLINE AMBULANCE TRANSFER. - Clinical Impression Provider Diagnosis: Chest pain, Tachycardia - Physician Notifications Discussed Patient Care With: Abisai Soto - [place] [facility] [place] Time Discussed With Above Provider: 16:00 Instructed by Provider To: MD Will See In ED Discharge - Sign-Out/Discharge Documenting (check all that apply): Patient Departure All imaging exams completed and their final reports reviewed: No Studies - Discharge Plan Condition: Stable Disposition: TRANS HIGHER LVL OF CARE FAC Patient Education Materials: Chest Pain (ED) Referrals: Shantanu Staples MD [Primary Care Provider] - If Needed Additional Instructions: GIVEN YOUR EPISODE OF CHEST PAIN AND FINDING OF INCREASED HEART RATE IN THE SETTING OF RAPID TITRATION UP ON CLOZAPINE IT IS PRUDENT TO BE EVALUATED FOR CARDIAC ABNORMALITY SUCH MYOCARDITIS. WE ARE UNABLE TO DO THIS HERE IN THE URGENT CARE. GO DIRECTLY [place] [facility] [place] HERE FOR FURTHER EVALUATION. YOU HAVE DECLINED TRANSFER TO THE ED BY AMBULANCE. BE ADVISED THAT BY NOT TRAVELING IN A MONITORED SETTING YOU COULD BE RISKING WORSENING OF YOUR CONDITION THAT COULD POSE A THREAT TO YOUR LIFE, HEALTH AND MEDICAL SAFETY. - Billing Disposition and Condition Condition: STABLE Disposition: Trans Higher Lvl of Care Fac
== END 2019-02-20 16:02 | disposition short-term general hospital (02) ==
LOC: UCEAST 14:31
DX: R07.9 Chest pain, unspecified (principal); R00.0 Tachycardia, unspecified; F20.9 Schizophrenia, unspecified; F17.210 Nicotine dependence, cigarettes, uncomplicated
CPT/HCPCS: 93005; 99212; G0463

== ENCOUNTER 2019-06-14 14:00 | Observation (INO) | payer OTHER ==
[2019-06-14 15:23] LABS: ABS Eosinophils 0.2 10^3/ul (0-0.6); ABS Lymphocytes 2.1 10^3/ul (1.0-4.8); ABS Monocytes 0.8 10^3/ul (0-0.8); ABS Neutrophils 6.4 10^3/ul (1.5-7.7); Eosinophil % 2.5 %; Hematocrit 46 % (42-52); Hemoglobin 15.6 g/dL (14.0-18.0); Lymphocyte % 21.8 %; Mean Corpuscular HGB Conc 34 g/dL (31-36); Mean Corpuscular Hemoglobin 30 pg (27-31); Mean Corpuscular Volume 87 fL (80-94); Mean Platelet Volume 8.6 fL (7.4-10.4); Nucleated Red Blood Cells % 0.1; Platelet Count 232 10^3/uL (150-450); Red Blood Count 5.24 10^6 /uL (4.18-5.48); Red Cell Distribution Width 13 % (10-15); White Blood Count 9.6 10^3/uL (3.5-10.8)
[2019-06-14 15:40] LABS: Albumin 4.3 g/dL (3.2-5.2); Albumin/Globulin Ratio 1.7 (1-3); BUN/Creatinine Ratio 15.3 (8-20); Calcium 9.2 mg/dL (8.6-10.3); EGFR African American 132.9 (>60); EGFR Non-African American 109.8 (>60); Globulin 2.6 g/dL (2-4); Potassium 4.2 mmol/L (3.5-5.0); Total Bilirubin 0.3 mg/dL (0.2-1.0); Total Protein 6.9 g/dL (6.4-8.9)
--- NOTE | 2019-06-14 15:49 | ED ---
Lower Extremity - HPI Summary HPI Summary: 23-year-old male presents with left calf pain for the past week. He also admits to shortness breath. No chest pain. He denies any injury. No numbness tingling. No back pain. No rash. He does have family history of blood clots ( mom states that she had one a young age). Is nonsmoker. No recent travel. Denies any swelling to the area. Has a history of schizophrenia and lyme. He is not a smoker. - History of Current Complaint Chief Complaint: EDExtremityLower Stated Complaint: LT LEG PAIN PER PER Time Seen by Provider: 06/14/19 14:48 Pain Intensity: 0 - Allergies/Home Medications Allergies/Adverse Reactions: Allergies Allergy/AdvReac Type Severity Reaction Status Date / Time bupropion [From Wellbutrin] Allergy Itching Verified 06/14/19 15:07 Home Medications: Home Medications Propranolol HCl 20 mg PO BID 06/14/19 [History Confirmed 06/14/19] PMH/Surg Hx/FS Hx/Imm Hx Endocrine/Hematology History: Denies: Hx Diabetes, Hx Thyroid Disease Cardiovascular History: Denies: Hx Hypertension, Hx Pacemaker/ICD Respiratory History: Denies: Hx Asthma, Hx Chronic Obstructive Pulmonary Disease (COPD) GI History: Denies: Hx Ulcer History: Denies: Hx Renal Disease Sensory History: Reports: Hx Contacts or Glasses Denies: Hx Legally Blind, Hx Deafness, Hx Hearing Aid Opthamlomology History: Reports: Hx Contacts or Glasses Denies: Hx Legally Blind Psychiatric History: Reports: Hx Anxiety, Hx Depression, Hx Inpatient Treatment , Hx Community Mental Health Tx, Hx Schizophrenia, Hx Bipolar Disorder Denies: Hx Eating Disorder, Hx Panic Disorder, Hx Suicide Attempt, Hx of Violent Episodes Against Others, Hx Substance Abuse, Other Psychiatric Issues/ Disorders Infectious Disease History: No Infectious Disease History: Denies: Hx Hepatitis, Hx Human Immunodeficiency Virus (HIV), Traveled Outside the [place] in Last 30 Days - Family History Known Family History: Positive: Other - epilepsy, Non-Contributory - Social History Alcohol Use: None Hx Substance Use: No Substance Use Type: Reports: None Hx Tobacco Use: No Smoking Status (MU): Former Smoker Amount Used/How Often: Pt has not smoked in last 30 days or used any tobacoo products. Review of Systems Negative: Fever Negative: Chest Pain Positive: Shortness Of Breath Positive: Myalgia - left calf pain All Other Systems Reviewed And Are Negative: Yes Physical Exam Triage Information Reviewed: Yes Vital Signs On Initial Exam: Initial Vitals Temp Pulse Resp BP Pulse Ox 96.8 F 90 16 126/80 97 06/14/19 14:02 06/14/19 14:02 06/14/19 14:02 06/14/19 14:02 06/14/19 14:02 Vital Signs Reviewed: Yes Appearance: Positive: Well-Appearing Skin: Positive: Warm, Dry Head/Face: Positive: Normal Head/Face Inspection Eyes: Positive: Normal, Conjunctiva Clear ENT: Positive: Pharynx normal Respiratory/Lung Sounds: Positive: Clear to Auscultation, Breath Sounds Present Cardiovascular: Positive: Normal, RRR Musculoskeletal: Positive: Strength/ROM Intact - left leg, Other - tenderness left calf, good pulses Neurological: Positive: Normal Psychiatric: Positive: Normal Procedures - Sedation Patient Received Moderate/Deep Sedation with Procedure: No Diagnostics - Vital Signs Vital Signs Temp Pulse Resp BP Pulse Ox 06/14/19 14:02 96.8 F 90 16 126/80 97 - Laboratory Lab Results: Lab Results 06/14/19 06/14/19 06/14/19 Range/Units 15:12 15:12 15:12 WBC 9.6 (3.5-10.8) 10^3/uL RBC 5.24 (4.18-5.48) 10^6 /uL Hgb 15.6 (14.0-18.0) g/dL Hct 46 (42-52) % MCV 87 (80-94) fL MCH 30 (27-31) pg MCHC 34 (31-36) g/dL RDW 13 (10-15) % Plt Count 232 (150-450) 10^3/uL MPV 8.6 (7.4-10.4) fL Neut % (Auto) 66.7 % Lymph % (Auto) 21.8 % [place] % (Auto) 8.7 % Eos % (Auto) 2.5 % Baso % (Auto) 0.3 % Absolute Neuts (auto) 6.4 (1.5-7.7) 10^3/ul Absolute Lymphs (auto) 2.1 (1.0-4.8) 10^3/ul Absolute Monos (auto) 0.8 (0-0.8) 10^3/ul Absolute Eos (auto) 0.2 (0-0.6) 10^3/ul Absolute Basos (auto) 0.0 (0-0.2) 10^3/ul Absolute Nucleated RBC 0.0 10^3/ul Nucleated RBC % 0.1 D-Dimer, Quantitative 632 H (Less Than 230) ng/mL Sodium 139 (135-145) mmol/L Potassium 4.2 (3.5-5.0) mmol/L Chloride 105 (101-111) mmol/L Carbon Dioxide 27 (22-32) mmol/L Anion Gap 7 (2-11) mmol/L BUN 13 (6-24) mg/dL Creatinine 0.85 (0.67-1.17) mg/dL Est GFR ( Amer) 132.9 (>60) Est GFR (Non-Af Amer) 109.8 (>60) BUN/Creatinine Ratio 15.3 (8-20) Glucose 110 H (70-100) mg/dL Calcium 9.2 (8.6-10.3) mg/dL Total Bilirubin 0.30 (0.2-1.0) mg/dL AST 17 (13-39) U/L ALT 27 (7-52) U/L Alkaline Phosphatase 131 H (34-104) U/L Troponin I 0.00 (<0.04) ng/mL Total Protein 6.9 (6.4-8.9) g/dL Albumin 4.3 (3.2-5.2) g/dL Globulin 2.6 (2-4) g/dL Albumin/Globulin Ratio 1.7 (1-3) Result Diagrams: 06/14/19 15:12 06/14/19 15:12 Lab Statement: Any lab studies that have been ordered have been reviewed, and results considered in the medical decision making process. - CT cta CT Interpretation Completed By: Radiologist Summary of CT Findings: IMPRESSION: 1. PULMONARY ARTERIAL FILLING DEFECTS CONSISTENT WITH PULMONARY EMBOLI WITHIN THE LOWER LOBES BILATERALLY AND RIGHT UPPER LOBE. 2. THERE IS CONSOLIDATION OF THE RIGHT LOWER LOBE IN THE PERIPHERY WHICH MAY REFLECT PULMONARY INFARCT GIVEN THE PRESENCE OF PULMONARY EMBOLI. PRELIMINARY FINDINGS WERE DISCUSSED WITH NYDIA ROMERO AT APPROXIMATE 5:05 PM ON JUNE 14, 2019. - Ultrasound No standard instances Ultrasound Interpretation Completed By: Radiologist Summary of Ultrasound Findings: IMPRESSION: NO LEFT LOWER EXTREMITY DEEP VEIN THROMBOSIS - EKG No standard instances Cardiac Rate: Tachycardia EKG Rhythm: Sinus Tachycardia Summary of EKG Findings: sinus tachycardia Lower Extremity Course/Dx - Course Course Of Treatment: 23-year-old male presents with left calf pain for the past couple days. He also admits to shortness breath. No chest pain. He denies any injury. No numbness tingling. No back pain. No rash. He does have family history of blood clots. Is nonsmoker. No recent travel. Denies any swelling to the area. Has a history of schizophrenia. On exam has tenderness left calf. Neurovascular intact. lungs CTA. wbc normal. d-dimer elevated. troponin zero. ekg sinus tachycardia. u/s no dvt. CTA shows multiple PE. per dr warren will place on lovenox and agrees to admit. - Diagnoses Differential Diagnosis/HQI/PQRI: Positive: DVT, Sprain, Strain Provider Diagnoses: Pain of left calf, Pulmonary embolism Discharge ED - Sign-Out/Discharge Documenting (check all that apply): Patient Departure - Discharge Plan Condition: Stable Disposition: ADMITTED TO [facility] Referrals: Shantanu Staples MD [Primary Care Provider] - - Billing Disposition and Condition Condition: STABLE Disposition: Admitted to [facility]
[2019-06-14] MEDS ORDERED: Iodixanol* (CONTRAST) 320 MG/ML 100 ML SDV IV ONE (15:52)
[2019-06-14] MEDS ORDERED: Rivaroxaban TAB(*) 15 MG PO ONE (17:20)
[2019-06-14] MEDS ORDERED: Enoxaparin(*) 100 MG/ML SYR SUBCUT ONE (17:30)
[2019-06-14] MEDS ORDERED: Acetaminophen TAB* 325 MG PO PRN (18:07)
[2019-06-14] MEDS: MINOCYCLINE 50 MG PO SCH (20:30)
[2019-06-14] MEDS: Propranolol TAB* 10 MG PO SCH (20:31)
[2019-06-14] MEDS: metFORMIN* 500 MG TAB PO SCH (20:31)
[2019-06-14] MEDS ORDERED: metFORMIN* 500 MG TAB PO SCH (21:00)
[2019-06-14] MEDS ORDERED: CloZAPine TAB* 100 MG TAB PO SCH (21:00)
[2019-06-14] MEDS: Docusate CAP* 100 MG PO SCH (21:42)
--- NOTE | 2019-06-14 22:28 | HP ---
CC: Dr. Staples.* HOSPITAL MEDICINE HISTORY AND PHYSICAL: DATE OF ADMISSION: 06/14/19 PRIMARY CARE PHYSICIAN: Dr. Staples. ATTENDING PHYSICIAN: Dr. Fartun Leo * (dictation provided by Tisha Hui NP). CHIEF COMPLAINT: Left leg pain and shortness of breath. HISTORY OF PRESENT ILLNESS: Mr. Ballesteros is a 23-year-old male with a past medical history of schizophrenia, Lyme disease, and obstructive sleep apnea who presents today the hospital with concerned for left calf pain and shortness of breath. Mr. Ballesteros states he has been in normal state of health until about a week ago when he developed left calf pain, the calf pain continued to worsen over the week. He initially states he had no other symptoms, but his mother who is at the bedside reminds him that he has been more short of breath and he does agree. He states he has had no chest pain. While waiting to come into the ED today, he stated that he did feel like his leg pain had suddenly gotten better. 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 He also notes that his mother has had blood clots x2 that were idiopathic. Mother reports that she had extensive workup and causes of those were not determined. She is not on anticoagulation flight crew time clerk. In the emergency room, Mr. Ballesteros had a Doppler of his left lower extremity that showed no DVT. He had a D-dimer that was greater than 500 and then went on for a chest thorax CTA, which showed the following, "pulmonary arterial filling defects consistent with pulmonary emboli within the lower lobe bilaterally and right upper lobe. There is consolidation of the right lower lobe in the periphery which may reflect pulmonary infarct given the presence of pulmonary emboli." On questioning, the patient does state he has a very small amount of pain along the right upper side of his chest when he takes in a deep breath. Vitals are stable. He is mildly tachycardic with his heart rate running above 105. He is on room air. PAST MEDICAL HISTORY: 1. Lyme disease. 2. Schizophrenia. 3. Obstructive sleep apnea. MEDICATIONS: 1. Cholecalciferol 1000 units p.o. daily. 2. Clozapine 300 mg p.o. at bedtime. 3. Docusate 100 mg p.o. daily. 4. Metformin 500 mg p.o. b.i.d. 5. Minocycline 100 mg p.o. b.i.d. 6. Propranolol 20 mg p.o. b.i.d. 7. Vitamin 1 tab p.o. daily. 8. Multivitamin 1 tab p.o. daily. ALLERGIES: BUPROPION. SOCIAL HISTORY: The patient quit smoking in January. No report of alcohol or drug use. He reports his mother be the healthcare proxy. He is a law student in [place]. REVIEW OF SYSTEMS: A 14-point review of systems was completed with Mr. Ballesteros and all those not mentioned above were negative. PHYSICAL EXAMINATION GENERAL: Mr. Ballesteros is sitting up on the bed with his mother at the bedside. He is in no acute distress. VITAL SIGNS: Heart rate 109, temperature 96.8, respiratory rate 23, O2 saturation 97% on room air, blood pressure 113/77. LUNGS: Clear to auscultation bilaterally with no accessory muscle use and good aeration. CARDIAC: S1, S2. No murmur, rub, or gallop and regular. ABDOMEN: Soft, nontender with bowel sounds positive x4. NEURO: He is alert. He is oriented x3. He moves all extremities equally. There is no facial asymmetry or focal weakness. Extraocular movements are intact. EXTREMITIES: No cyanosis or edema. There is no erythema, redness, or edema to his left calf. SKIN: Intact. LABORATORY DATA/DIAGNOSTIC STUDIES: WBC 9.6, hemoglobin 15.6, hematocrit 46, platelet count 232. D-dimer is 632. Sodium was 139, potassium 4.2, chloride 105, serum bicarbonate 27, BUN 13, creatinine 0.85, glucose 110. Troponin 0.00. Again, the venous Doppler study showed no DVT. The chest thorax CTA showed pulmonary embolism as outlined in the HPI. ASSESSMENT AND PLAN: Mr. Ballesteros is a 23-year-old male with a past medical history of obstructive sleep apnea, schizophrenia, and positive family history for DVT, who presents today to the hospital with left calf pain and shortness of breath, found to have a pulmonary embolism. Our plans are for observation in the hospital for the followin. Pulmonary embolism: The patient is stable. He is mildly tachycardic. His EKG does not show any evidence of strain. Plan to monitor overnight on telemetry. Plan to start Lovenox 1 mg/kg dosing and then he will likely transition over to apixaban tomorrow. Plan to check transthoracic echocardiogram. In terms of workup for this DVT, I am going to defer that to outpatient. He has already been started on anticoagulants at this point, which would . 2. Obstructive sleep apnea, on CPAP. 3. Schizophrenia. Continue his home medication regimen. 4. DVT prophylaxis. Again with the Lovenox. 5. Code status is full code. TIME SPENT: Approximately 60 minutes was spent on the admission of this patient , more than half the time spent with the patient at the bedside reviewing the events leading up to this hospitalization, performing the physical examination, and reviewing my plan of care. TISHA HUI NP [id number]/[facility] #: [id number] JOIE
[2019-06-15] MEDS ORDERED: Enoxaparin(*) 150 MG/ML 1 ML SYRINGE SUBCUT SCH (06:00)
[2019-06-15] MEDS ORDERED: Enoxaparin(*) 100 MG/ML SYR SUBCUT SCH (08:00)
[2019-06-15] MEDS ORDERED: Docusate CAP* 100 MG PO SCH (09:00)
[2019-06-15] MEDS ORDERED: Vitamin THERAPEUTIC TAB PO SCH (09:00)
[2019-06-15] MEDS ORDERED: CloZAPine TAB* 100 MG TAB PO SCH (09:00)
[2019-06-15] MEDS ORDERED: Cholecalciferol TAB* 1000 UNITS PO SCH (09:00)
[2019-06-15] MEDS: Docusate CAP* 100 MG PO SCH (09:24)
[2019-06-15] MEDS: MINOCYCLINE 50 MG PO SCH (09:24)
[2019-06-15] MEDS: metFORMIN* 500 MG TAB PO SCH (09:24)
[2019-06-15] MEDS: Propranolol TAB* 10 MG PO SCH (09:24)
--- NOTE | 2019-06-15 11:43 | ECHO ---
*[facility]* [place] [address] Fax #: [phone] Transthoracic Echocardiogram Patient: Jay Ballesteros : 1995 Study Date: 06/15/2019 Age: 23 Gender: M HR: 103 bpm Height: 69 in /175.3 cm BSA: 2.32 m^2 Weight: 261.5 lb /118.8 kg BMI: 38.7 kg/m^2 *Cell Tender: * Olga Lidia Toscano [facility] *Referring Physician: * Tisha Hui *Reading Physician: * Mauro Garcia MD Indications: Pulmonary embolism. History: Lyme disease. Conclusions Summary: - Left ventricle: Systolic function is normal. The estimated ejection fraction is 55-60%. Wall motion is normal; there are no regional wall motion abnormalities. - Mitral valve: There is no significant regurgitation. - Aortic valve: There is no evidence of stenosis. There is no significant regurgitation. - Tricuspid valve: There is no significant regurgitation. - Pulmonary arteries: Systolic pressure can not be accurately estimated. - Study data: No prior study is available for comparison. Study data: Transthoracic echocardiogram. Procedure: Transthoracic echocardiography was performed. Image quality was fair. Complete 2D, spectral Doppler, and color flow Doppler. Location: Bedside. Patient status: Inpatient. Patient room number: 444 02. No prior study is available for comparison. Rhythm: Tachycardia. Findings Left ventricle: The cavity size is normal. Wall thickness is mildly increased. Systolic function is normal. The estimated ejection fraction is 55-60%. Wall motion is normal; there are no regional wall motion abnormalities. Left ventricular diastolic function parameters are normal. Right ventricle: The cavity size is normal. Systolic function is low normal. Left atrium: The atrium is normal in size. Right atrium: The atrium is normal in size. Mitral valve: The leaflets are normal thickness. There is no evidence of stenosis. There is no significant regurgitation. Aortic valve: The valve is trileaflet. The leaflets are normal thickness. There is no evidence of stenosis. There is no significant regurgitation. Tricuspid valve: The leaflets are normal thickness. There is no evidence of stenosis. There is no significant regurgitation. Pulmonic valve: The leaflets are normal thickness. There is no evidence of stenosis. There is trace regurgitation. Aorta: The aortic root appears normal. The aortic arch appears normal. Pericardium: A trace pericardial effusion is identified along the right atrial free wall. Pulmonary arteries: The main pulmonary artery is normal-sized. Systolic pressure can not be accurately estimated. Systemic veins: Inferior vena cava: Not well visualized. Measurements Left ventricle Value Ref Right atrium continued Value Ref DOROTHY, LAX 4.2 cm 4.2 - 5.8 ML dim, ES, A4C 3.5 cm 2.6 - 4.4 ESD, LAX 2.8 cm 2.5 - 4.0 Estimated RAP 3 mm Hg --------- FS, LAX 33 % 25 - 43 PW, ED, LAX 1.0 cm 0.6 - 1.0 Aortic valve Value Ref EF 61 % 52 - 72 Belinda diam, ED 2.4 cm --------- E', lat belinda, TDI 11.4 cm/sec >=10.0 Peak v, S 1.09 m/sec ----- ---- E/e', lat belinda, 5 VTI, S 16.5 cm -------- - TDI Mean grad, S 3.0 mm Hg --------- E', med belinda, TDI 13.8 cm/sec >=7.0 Peak grad, S 5.0 mm Hg ----- ---- E/e', med belinda, 4 TDI Mitral valve Value Ref E', avg, TDI 12.6 cm/sec Peak E 0.61 m/sec -------- - E/e', avg, TDI 5 <=14 Peak A 0.74 m/sec ----- ---- Decel time 113 ms --------- LVOT Value Ref Peak E/A ratio 0.8 --------- Peak tracy, S 0.84 m/sec Mean grad, S 2 mm Hg Pulmonic valve Value Ref Peak v, S 0.59 m/sec --------- Ventricular septum Value Ref Peak grad, S 1.0 mm Hg --------- IVS, ED (H) 1.1 cm 0.6 - 1.0 Aortic root Value Ref Right ventricle Value Ref Root diam 3.4 cm <4.0 DOROTHY, LAX 2.4 cm DOROTHY minor ax, 2.9 cm 1.9 - 3.5 Ascending aorta Value Ref A4C mid AAo AP diam, S 2.7 cm --------- Left atrium Value Ref Aortic arch Value Ref AP dim, ES 3.10 cm 3.00 - Arch diam 2.2 cm --------- 4.00 ML dim, A4C 4.0 cm Decending aorta Value Ref SI dim, A4C 4.6 cm Vicky peak tracy 0.86 m/sec --------- Vol/bsa, ES, A/L 18 ml/m^2 16 - 34 Right atrium Value Ref SI dim, ES 4.5 cm 3.4 - 5.3 Legend: (L) and (H) alejandra values outside specified reference range. Prepared and electronically signed by Mauro Garcia MD 06/15/2019 11:43
[2019-06-15 11:58] VITALS: BP 113/73
--- NOTE | 2019-06-16 03:34 | DS ---
CC: Dr. Staples * DISCHARGE SUMMARY: DATE OF ADMISSION: 06/14/19 DATE OF DISCHARGE: 06/15/19 ATTENDING PHYSICIAN WHILE IN THE HOSPITAL: Dr. Stephani Avila * (dictated by BRYCE Davalos). PRIMARY CARE PROVIDER: Dr. Staples. PRIMARY DIAGNOSIS: Pulmonary embolism. SECONDARY DIAGNOSES: 1. Schizophrenia. 2. Obstructive sleep apnea, on CPAP. 3. History of Lyme disease. 4. Weight gain secondary to clozapine (this is reportedly the reason why the patient is on metformin). STUDIES WHILE IN THE HOSPITAL: Transthoracic echocardiogram: Wall motion is normal, no regional wall motion abnormalities. EF is 55% to 60%. Trace pericardial effusion along the right atrial free wall. Venous Doppler study of left lower extremity, impression: No left lower extremity DVT. Chest CTA, impression: Pulmonary arterial filling defects consistent with pulmonary emboli within the lower lobes bilaterally and right upper lobe. There is consolidation of the right lower lobe in the periphery which may reflect pulmonary infarct given the presence of pulmonary emboli. HISTORY OF PRESENT ILLNESS/HOSPITAL COURSE: Jay Ballesteros is a 23-year-old white male with past medical history significant for obstructive sleep apnea, on CPAP, and schizophrenia, who presented to the emergency department due to left leg pain and shortness of breath. The patient was complaining of left lower extremity pain for approximately 1 week leading up to this hospitalization. Please see admitting history and physical by Tisha Hui, nurse practitioner, for further details. Ultimately, the patient was found to have multiple pulmonary emboli. His Doppler was negative for DVT, though considering the clinical picture of him having left lower extremity pain and left calf pain leading up to this hospitalization, it is likely that he had a prior DVT that was the source of this PE. The patient's mother does have past medical history of unprovoked VTE, reportedly has had a negative hypercoagulability workup. Given that the patient has had a sedentary lifestyle due to sitting for a long time, this may be an explanation; however, hypercoagulability workup is still necessary. The patient was minimally tachycardic at admission. This resolved over time during his hospital stay and his blood pressures were normal during the time. His echocardiogram did demonstrate a small pleural effusion; however, there is no risk for tamponade, although there is trace pleural effusion in the setting of pulmonary embolism, maybe more concerning for a malignancy. On day of discharge, the patient is feeling well. He admits that he did have some shortness of breath with exertion but his breathing feels comfortable at rest. He did not feel dizziness or lightheadedness at rest or with exertion and denies chest pain, fevers, or chills. The patient was given b.i.d. Lovenox during his hospital stay. He and I discussed oral anticoagulation and he was agreeable to b.i.d. oral anticoagulation as he already takes b.i.d. medications at home. PHYSICAL EXAMINATION: General: Obese, young white male, lying on hospital bed , appearing comfortable, in no acute distress. Flat affect. Eyes: PERRL. Sclerae anicteric. ENT: Mucous membranes moist. Neck: Supple without JVD. Lungs: Clear to auscultation throughout. Cardio: Regular rate and rhythm without murmurs, rubs, or gallops. Abdomen: Soft, nontender, nondistended. Extremities: No clubbing, cyanosis, or edema. No palpable cords. Negative calf tenderness. Neuro: The patient is alert and oriented x3. No focal deficits. No tremors. Able to move all extremities. DISCHARGE PLAN: Diet: Regular unrestricted diet. Activity: The patient may return to normal activity as tolerated. The patient is provided with an excuse from classes for today and tomorrow. We discussed that some shortness of breath with exertion is expected while his VTE is resolving. Advised him to return to the emergency room if he is experiencing sudden shortness of breath at rest, shortness of breath with exertion is not resolved with rest, fever, chills, loss of consciousness, lightheadedness or dizziness that does not resolve, or sudden chest pain. The patient was provided with the phone number for [facility] Hematology/Oncology. He is advised to follow up in 1 to 2 weeks. He is additionally advised to follow up with his primary care provider within 1 week. DISCHARGE MEDICATIONS: Eliquis 10 mg p.o. b.i.d. x7 days and 5 mg p.o. b.i.d. Continued home medications: 1. Minocycline 100 mg p.o. b.i.d. 2. Multivitamin 1 tab p.o. daily. 3. Metformin 500 mg p.o. b.i.d. 4. Vitamin D 1000 units p.o. daily. 5. Clozapine 300 mg p.o. daily. 6. Propranolol 20 mg p.o. b.i.d. 7. Docusate 100 mg p.o. b.i.d. CONDITION ON DISCHARGE: Stable. DISPOSITION: Home. TIME SPENT: Approximately 35 minutes was spent on this discharge, approximately half this time was spent at bedside evaluating the patient and discussing the plan of care. BRYCE DAVALOS [id number]/[facility] #: [id number] MTDD
== END 2019-06-15 15:40 | disposition home or self-care (01) ==
LOC: ED 14:00 → MEDTELE 18:06
PROVIDERS: ADMIT Internal Medicine; ATTEND Hospitalist
DX: I26.99 Other pulmonary embolism without acute cor pulmonale (principal); F20.9 Schizophrenia, unspecified; G47.33 Obstructive sleep apnea (adult) (pediatric); A69.20 Lyme disease, unspecified; R63.5 Abnormal weight gain; Z79.899 Other long term (current) drug therapy; R06.02 Shortness of breath; M79.605 Pain in left leg; Z87.891 Personal history of nicotine dependence; R00.0 Tachycardia, unspecified
CPT/HCPCS: 36415; 71275; 80053; 84484; 85025; 85379; 93005; 93306; 94660; 99283; A9270-GY; J1650; Q9967

== ENCOUNTER 2019-06-16 03:48 | Emergency (ER) | payer OTHER ==
--- NOTE | 2019-06-16 04:39 | ED ---
Complex/Multi-Sys Presentation - HPI Summary HPI Summary: This patient is a 23 year old M presenting to [facility] accompanied by his mother with a chief complaint of waking up from rib pain an hour ago. Pt was discharged from [facility] today for 2 PEs and was on Eloquis for them. The patient rates the pain 8/10 in severity. Symptoms aggravated by nothing. Symptoms alleviated by nothing. Patient reports headache, nausea. Pt has Lyme disease, schizophrenia. Pt does not smoke, drink alcohol, or use recreational drugs. He has not had any previous surgeries. - History Of Current Complaint Chief Complaint: EDShortnessOfBreath Hx Obtained From: Patient, Family/[employer] - mother Onset/Duration: Sudden Onset, Lasting Hours - 1, Still Present Timing: Constant Severity Currently: Mild Severity Initially: Mild Aggravating Factor(s): nothing Alleviating Factor(s): nothing Associated Signs And Symptoms: Positive: Headache, Nausea, Other - positive - rib pain - Allergies/Home Medications Allergies/Adverse Reactions: Allergies Allergy/AdvReac Type Severity Reaction Status Date / Time bupropion [From Wellbutrin] Allergy Itching Verified 06/16/19 03:52 Home Medications: Home Medications Apixaban* [Eliquis*] 10 mg PO BID 06/16/19 [History Confirmed 06/16/19] PMH/Surg Hx/FS Hx/Imm Hx Previously Healthy: No Endocrine/Hematology History: Reports: Other Endocrine/Hematological Disorders - Lyme disease Denies: Hx Diabetes, Hx Thyroid Disease Cardiovascular History: Denies: Hx Hypertension, Hx Pacemaker/ICD Respiratory History: Reports: Hx Sleep Apnea - CPAP Denies: Hx Asthma, Hx Chronic Obstructive Pulmonary Disease (COPD) GI History: Denies: Hx Ulcer History: Denies: Hx Renal Disease Sensory History: Reports: Hx Contacts or Glasses Denies: Hx Legally Blind, Hx Deafness, Hx Hearing Aid Opthamlomology History: Reports: Hx Contacts or Glasses Denies: Hx Legally Blind Neurological History: Comment Only: Other Neuro Impairments/Disorders - TBI Psychiatric History: Reports: Hx Anxiety, Hx Depression, Hx Inpatient Treatment , Hx Community Mental Health Tx, Hx Schizophrenia, Hx Bipolar Disorder Denies: Hx Eating Disorder, Hx Panic Disorder, Hx Suicide Attempt, Hx of Violent Episodes Against Others, Hx Substance Abuse, Other Psychiatric Issues/ Disorders - Surgical History Surgical History: None Infectious Disease History: No Infectious Disease History: Denies: Hx Hepatitis, Hx Human Immunodeficiency Virus (HIV), Traveled Outside the [place] in Last 30 Days - Family History Known Family History: Positive: Other - epilepsy, Non-Contributory - Social History Alcohol Use: None Hx Substance Use: No Substance Use Type: Reports: None Hx Tobacco Use: No Smoking Status (MU): Former Smoker Amount Used/How Often: Pt has not smoked in last 30 days or used any tobacoo products. Review of Systems Positive: Nausea Musculoskeletal: Other - positive - rib pain Positive: Headache All Other Systems Reviewed And Are Negative: Yes Physical Exam - Summary Physical Exam Summary: General: Well-developed, morbidly obese MALE. No acute distress. HEENT: Normocephalic, Atraumatic. Eyes: Conjuctiva normal, PERRL. Ears: TMs within normal limits. Nares: (-) discharge, (-) erythema. Oropharynx: Clear, mucous membranes moist, (-) exudates. Neck: Soft, FROM, (-) lymphadenopathy, (-) thyromegaly, (-) JVD. Cardiovascular: Normal sinus rhythm, (-) murmur. Lungs: Clear to auscultation bilaterally (-) wheezes, (-) rales, (-) rhonchi. Abdomen: Soft, non-tender, non-distended, (-) organomegaly, normal bowel sounds. Back: (-) CVA tenderness Extremities: No edema. Skin: Warm, dry, (-) rash. Neuro: Alert and oriented x3, no focal deficits. Psychiatric: Mood normal, odd affect Triage Information Reviewed: Yes Vital Signs On Initial Exam: Initial Vitals Temp Pulse Resp BP Pulse Ox 99.4 F 120 30 117/83 97 06/16/19 03:50 06/16/19 03:50 06/16/19 03:50 06/16/19 03:50 06/16/19 03:50 Vital Signs Reviewed: Yes Procedures - Sedation Patient Received Moderate/Deep Sedation with Procedure: No Diagnostics - Vital Signs Vital Signs Temp Pulse Resp BP Pulse Ox 06/16/19 03:50 99.4 F 120 30 117/83 97 - Laboratory Result Diagrams: 06/16/19 04:51 06/16/19 04:51 Lab Statement: Any lab studies that have been ordered have been reviewed, and results considered in the medical decision making process. - Radiology CXR Radiology Interpretation Completed By: ED Physician Summary of Radiographic Findings: Impression: No infiltrate. No pleural effusion. - EKG 0450 Cardiac Rate: Tachycardia - 117 BPM EKG Rhythm: Sinus Tachycardia Summary of EKG Findings: EKG at 0450 shows 117 BPM, sinus tachycardia, no STEMI Complex Multi-Symp Course/Dx Course Of Treatment: 23-year-old male with known PEs. Discharged from the hospital yesterday. He is on our course. He woke in the middle of night with chest pain and headache. Patient had episode of vomiting 1 here. Given IV fluids and Zofran. Tylenol for headache and pain. Awaiting repeat lactic and reevaluation. Signed out at change of shift. - Diagnoses Provider Diagnoses: Pulmonary embolism Discharge ED - Sign-Out/Discharge Documenting (check all that apply): Sign-Out Patient Signing out patient TO: Victor Hugo Savage - This pt will be signed out from Dr. Mendoza to Dr. Savage at 0700 06/16/19 shift change pending repeat lactic and reeval - Discharge Plan Condition: Good Disposition: HOME Patient Education Materials: Pulmonary Embolism (ED) Referrals: Shantanu Staples MD [Primary Care Provider] - Additional Instructions: The tests we did today look ok, it does not look like you are getting sicker from the clots. However, it will take a number of weeks to recover from this, and you may experience waxing and waning pain and shortness of breath as that happens. If you are feeling much worse and are concerned you are getting sicker , we are always happy to see you here and get things checked out until you have a feeling for this. Your clot burden was not insignificant and it looked like in some area of the lung the tissue had actually infarcted from lack of blood supply, so I would definitely expect for you to have symptoms from that while it is healing. - Billing Disposition and Condition Condition: GOOD Disposition: Home - Attestation Statements Document Initiated by Aliciae: Yes Documenting Scribe: Raheel Sloan Provider For Whom Pam is Documenting (Include Credential): Dr. Greta Mendoza MD Scribe Attestation: Raheel Piedra scribed for Dr. Greta Mendoza MD on 06/17/19 at 0343. Scribe Documentation Reviewed: Yes Provider Attestation: The documentation as recorded by the zoilaibRaheel lama accurately reflects the service I personally performed and the decisions made by me, Dr. Greta Mendoza MD Status of Scribe Document: Viewed
[2019-06-16 05:01] LABS: ABS Eosinophils 0.3 10^3/ul (0-0.6); ABS Neutrophils 9.6 10^3/ul (1.5-7.7); Hematocrit 42 % (42-52); Hemoglobin 14.4 g/dL (14.0-18.0); Lymphocyte % 15.3 %; Mean Corpuscular HGB Conc 34 g/dL (31-36); Mean Corpuscular Hemoglobin 30 pg (27-31); Mean Corpuscular Volume 86 fL (80-94); Mean Platelet Volume 8.6 fL (7.4-10.4); Platelet Count 218 10^3/uL (150-450); Red Blood Count 4.87 10^6 /uL (4.18-5.48); Red Cell Distribution Width 13 % (10-15); White Blood Count 12.9 10^3/uL (3.5-10.8)
[2019-06-16 05:10] LABS: INR 1.3 (0.82-1.09)
[2019-06-16 05:20] LABS: Albumin 3.9 g/dL (3.2-5.2); Albumin/Globulin Ratio 1.6 (1-3); BUN/Creatinine Ratio 17.3 (8-20); Calcium 8.8 mg/dL (8.6-10.3); EGFR African American 140.5 (>60); EGFR Non-African American 116.1 (>60); Globulin 2.5 g/dL (2-4); Potassium 3.6 mmol/L (3.5-5.0); Total Bilirubin 0.4 mg/dL (0.2-1.0); Total Protein 6.4 g/dL (6.4-8.9)
[2019-06-16] MEDS ORDERED: NS 0.9% 1000 ML** 1,000 ML IV ONE (05:25)
[2019-06-16] MEDS ORDERED: Ondansetron INJ* 2 MG/ML VIAL IV ONE (05:58)
[2019-06-16] MEDS ORDERED: Ondansetron INJ* 2 MG/ML VIAL ONE (06:00)
[2019-06-16] MEDS ORDERED: Acetaminophen TAB* 325 MG PO ONE (06:16)
--- NOTE | 2019-06-16 07:29 | ED ---
Progress - Progress Note Progress Note: This patient was signed out from Dr. Mendoza at 0700 on , pending disposition, awaiting repeat lactic acid and re-evaluation. Repeat Lactic Acid is 1.6. The patients condition is table and will be discharged to home with Dx of pulmonary embolism. Re-Evaluation - Re-Evaluation First Eval Re-Evaluation Time: 08:16 Comment: Discussed results and plan of care with pt and his mother. Course/Dx - Course Course Of Treatment: This patient was signed out from Dr. Mendoza at 0700 on , pending disposition, awaiting repeat lactic acid and re-evaluation. Repeat Lactic Acid is 1.6. The patients condition is table and will be discharged to home with Dx of pulmonary embolism. - Diagnoses Provider Diagnoses: Pulmonary embolism Discharge ED - Sign-Out/Discharge Documenting (check all that apply): Patient Departure - Discharge - Discharge Plan Condition: Good Disposition: HOME Patient Education Materials: Pulmonary Embolism (ED) Referrals: Shantanu Staples MD [Primary Care Provider] - Additional Instructions: The tests we did today look ok, it does not look like you are getting sicker from the clots. However, it will take a number of weeks to recover from this, and you may experience waxing and waning pain and shortness of breath as that happens. If you are feeling much worse and are concerned you are getting sicker , we are always happy to see you here and get things checked out until you have a feeling for this. Your clot burden was not insignificant and it looked like in some area of the lung the tissue had actually infarcted from lack of blood supply, so I would definitely expect for you to have symptoms from that while it is healing. - Billing Disposition and Condition Condition: GOOD Disposition: Home - Attestation Statements Document Initiated by Pam: Yes Documenting Scribe: Fartun Rene Provider For Whom Pam is Documenting (Include Credential): Victor Hugo Savage MD Scribe Attestation: Fartun Piedra scribed for Victor Hugo Savage MD on 06/18/19 at 1838. Scribe Documentation Reviewed: Yes Provider Attestation: The documentation as recorded by the Fartun cortes accurately reflects the service I personally performed and the decisions made by me, Victor Hugo Savage MD Status of Scribe Document: Viewed
[2019-06-16 08:55] VITALS: BP 124/78
== END 2019-06-16 08:54 | disposition home or self-care (01) ==
LOC: ED 03:48
DX: I26.99 Other pulmonary embolism without acute cor pulmonale (principal); F41.9 Anxiety disorder, unspecified; Z87.891 Personal history of nicotine dependence; Z79.01 Long term (current) use of anticoagulants; Z88.8 Allergy status to other drugs, medicaments and biological substances
CPT/HCPCS: 36415; 71045; 80053; 83605; 84484; 85025; 85610; 93005; 96361; 96374; 99283; A9270-GY; J2405